=== PATIENT | female | born 1985 | race Caucasian/White ===

== ENCOUNTER 2017-08-09 03:58 | Day surgery (SDC) | payer OTHER ==
[2017-08-06 11:21] LABS: BASOPHIL % 0.3 % (0.0-0.2); EOSINOPHIL # 0.1 10^3/uL (0.0-0.2); EOSINOPHIL % 1.5 % (0.0-5.0); LYMPHOCYTES # 2.7 10^3/uL (1.0-4.8); LYMPHOCYTES % 28.7 % (24.0-44.0); MEAN CELL HGB CONCENTRATION 32.3 g/dL (33-37); MEAN CORP VOLUME 83.6 fL (78-100); MEAN PLATELET VOLUME 9.5 fL (7.8-11.0); MONOCYTES # 0.5 10^3/uL (0.3-0.8); MONOCYTES % 5.4 % (5.0-12.0); NEUTROPHILS % 63.9 % (41.0-85.0); RED CELL DISTRIBUTION WIDTH 12.9 % (11.5-14.5); WHITE BLOOD CELL 9.4 10^3/uL (4.5-11.0)
[2017-08-06 11:46] LABS: CALCIUM 9.6 mg/dL (8.4-10.5)
[2017-08-08 09:18] VITALS: BP 142/85
--- NOTE | 2017-08-08 09:29 | PCM.EKG ---
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
[~2017-08-09] VITALS: Ht 157.5 cm; Wt 91.6 kg
[~2017-08-09 03:58] MED LIST: BUSP30TA PO; INSU100C SQ; INSU100I31 SQ; LOSA25TA5 PO; METF500T5 PO; NORG1TAB6 PO; SERT100T PO
[2017-08-09] MEDS ORDERED: NS 1000ML 1,000 ML ONE (04:34)
[2017-08-09] MEDS ORDERED: LIDOCAINE 2% VIAL ONE (06:04)
[2017-08-09] MEDS ORDERED: DIPRIVAN IV ONE (06:04)
[2017-08-09] MEDS ORDERED: NS 1000ML 1,000 ML IV SCH (07:00)
[2017-08-09 07:13] VITALS: BP 145/74
[2017-08-09 08:43] VITALS: BP 105/69
[2017-08-09 08:48] VITALS: BP 111/69
[2017-08-09 08:53] VITALS: BP 127/82
[2017-08-09 08:55] VITALS: BP 118/82
[2017-08-09] MEDS ORDERED: PHENERGAN IV PRN (09:00)
--- NOTE | 2017-08-09 11:31 | OPH ---
DATE OF SURGERY: PREOPERATIVE DIAGNOSIS: History of dyspepsia. POSTOPERATIVE DIAGNOSIS: Gastritis. SURGEON: Taz Otto DO IT TECHNICAL SPECIALIST: OR staff. ANESTHESIA: Total intravenous anesthesia by Cuauhtemoc Mcgee CRNA. PROCEDURE PERFORMED: Esophagogastroduodenoscopy with biopsy. SPECIMENS: Gastric mucosa to path. ESTIMATED BLOOD LOSS: 3 mL. COUNTS: At the completion of the case, the counts were correct per OR staff. DESCRIPTION OF PROCEDURE: The patient is a 31-year-old female known from previous evaluation. Prior to procedure, informed consent was obtained. At time of procedure, she was taken to the operative suite and placed in supine position. After time-out was completed, she was placed in left lateral recumbent position. After adequate sedation, esophagogastroduodenoscope was advanced transorally with pneumoinsufflation distally in second portion of duodenum. Once the duodenum was adequately visualized, camera was slowly withdrawn to facilitate visualization of the duodenal bulb and the pylorus. Pylorus and distal stomach showed minimal gastritis and biopsies were obtained. The retroflexed maneuver was performed. The cardia and fundus were grossly normal. Camera was reduced, stomach was decompressed, scope was slowly withdrawn. Distal, mid and proximal esophagus were grossly normal. Vocal cords were visualized and within normal limits. Camera was removed. Procedure was discontinued. The patient tolerated this procedure well. There were no acute complications noted. Taz Otto DO DR: JHOAN/luciana JOB# [id number] CC: Jennie Verma NP
== END 2017-08-09 09:15 | disposition home or self-care (01) | DRG 392 ==
LOC: SDC 03:58
PROVIDERS: ATTEND Surgery
DX: K29.50 Unspecified chronic gastritis without bleeding (principal); K30 Functional dyspepsia; E11.9 Type 2 diabetes mellitus without complications; F41.9 Anxiety disorder, unspecified; E03.9 Hypothyroidism, unspecified; E66.9 Obesity, unspecified; I10 Essential (primary) hypertension; E78.5 Hyperlipidemia, unspecified; Z98.890 Other specified postprocedural states; Z79.899 Other long term (current) drug therapy; Z80.8 Family history of malignant neoplasm of other organs or systems; Z88.8 Allergy status to other drugs, medicaments and biological substances; Z68.37 Body mass index [BMI] 37.0-37.9, adult; Z88.2 Allergy status to sulfonamides; Z79.84 Long term (current) use of oral hypoglycemic drugs
CPT/HCPCS: 36415; 43239; 80053; 84703; 85025; 85610; 85730; 88305; 93005; J2001; J3490; J7030

== ENCOUNTER → 2017-10-31 | Outpatient (CLI) | payer OTHER ==
--- NOTE | 2017-11-04 10:09 | DIET.OP ---
OP DIAB DIETARY CONSULT Date Seen by RD: Oct 31, 2017 Time Started: 02:00 Time Ended Session: 03:00 Calculated TT spent w/ Patient: 60 Reason for Referral (From Orde: Planning for Gastric Sleeve Surgery Is patient needing clearance f: Yes Pertinent Medical Hx/Surgical: DM type 2, HTN, hypercholesteralemia Pertinent Medications Humalog, Tresiba, Losartan, atorvastatin Does PT take any Supplements/V: No Do you dip or chew tobacco?: No Have you smoked in the past 12: No Alcohol use?: No Problems w/ Mouth/Teeth/Throat: No Hx High Cholesterol: Yes Height (Calculated Centimeters: [phone] Weight (Kilograms): 93 Weight (Calculated Grams): 50614.660 Weight Measurement Method: Standing Scale Current Weight: 205 Usual Weight: 190 %UBW: 108 What Type of Diabetes? (Type: 2 Current Bld Sugar Management? Fastin-150 mg/dL Before Lunch: 150-250 mg/dL Medications: 22 units of Humalog with meals, 115 units of Tresiba once daily Primary Preferred Language: Guyanese Learning Preferences: Audio Marital Status: Primary Emotional Support Pers: Spouse Heartburn?: Yes Gas?: No Bloating?: Yes Stomach Pain?: No Nausea/Vomiting?: No Diarrhea?: No Constipation?: No Allergies?: Yes If yes, please list: Sulfa, Metformin Goals for this Session: To receive more information on a diabetic diet and bariatric diet in preparation for gastric sleeve Previous Received Diet Edu? Pt reported having some DM education about 6 years ago Current Eating Pattern(s): BLD: Breakfast (2 boiled eggs, 3 slices of terrell, Coffee), Dinner (Protein, Veggie, Pasta/Potato/Starch, unsweet Tea), Lunch ( Baked Potato w/butter and cheese, salad w/lettuce tomato carrots ham and ranch dressing, unsweet Tea), Snacks (Sweet and Salty Bar, [address] Sandoval 2x week, water) Dietary Limitations?(i.e.-disl: No Sleep Pattern(s): Sleeps 6-7 hours per night Do you Exercise?: Yes (walks 30 minutes every other day) PES STATEMENT: PES Statement Overweight related to food and nutrition related knowledge deficit as evidenced by BMI 37.5, 108% UBW, 186% IBW. Education Provided?: Yes Nutrition education given: Pt was given education on proper diabetic diet, tip for eating after bariatric surgery, vitamin and mineral supplementation after surgery and diet expectations after surgery. In the coming sessions, the goal is to dive further in depth into proper vitamin and mineral supplementation and diet for post surgery to ensure pt has the tools to be successful. Stage of change: Pt is currently in the preparation stage Goals in Patient Words: Goals to work on for next session: " I will decrease my consumption of Dr. Sandoval to once per week." "Better follow a proper diet for my DM because I was not sure what I could and could not eat." Next F/U Date & Time [facility]man on: 11/28/2017, [address] Nov 04, 2017 10:09
== END | disposition home or self-care (01) ==
LOC: DED 12:56
PROVIDERS: ATTEND Nurse Practitioner Family
DX: E66.01 Morbid (severe) obesity due to excess calories (principal); E11.9 Type 2 diabetes mellitus without complications; I10 Essential (primary) hypertension; E78.5 Hyperlipidemia, unspecified; K21.9 Gastro-esophageal reflux disease without esophagitis; E03.9 Hypothyroidism, unspecified
CPT/HCPCS: 97803

== ENCOUNTER → 2017-12-19 | Outpatient (CLI) | payer OTHER ==
[~2017-12-19] MED LIST changes: -LOSA25TA5 PO; +LOSA25TA6 PO; +METF500T17 PO; -METF500T5 PO
--- NOTE | 2017-12-23 10:39 | DIET.OP ---
Outpatient Nutritional Edu Time In: 15:15 Time Out: 15:45 Dietary/Nutritional Education Anthropometrics: Height (in.): 62 Weight (kg): 91 BMI: 36.6 Previous Diet Recall: Breakfast (2 boiled eggs, 3 slices of terrell, Coffee) Lunch (Baked Potato w/butter and cheese, salad w/lettuce tomato carrots ham and ranch dressing, unsweet Tea) Dinner (Protein, Veggie, Pasta/Potato/Starch, unsweet Tea) Snacks (Sweet and Salty Bar, [address] Sandoval 2x week, water) Sleep: Continues to get 6-7 hours per night Subjective Information: Patient has been doing well since our last visit in October. She has reported a weight loss of approximately 5 pounds over this time period. She did not bring her food journal from home, but reported that she has been filling it out since the last visit. She was provided a new journal and advised to bring it back with her so that it can be reviewed. She reported that she has been making several diet modifications including eliminating carbonated drinks from her diet. She is set to do her psych evaluation for surgery and once she finds out those results she will be able to figure out a surgery date. When a surgery date is picked, more specific nutrition education and preparation for bariatric surgery can be executed to give her the best chance for success. She is making good progress towards having a successful outcome. State of Change: The patient continues to be in the action stage of change Patient Goal: " Continue to really monitor food intake and fill out food diary so it can be assessed at the next visit." AWILDA WHEELER RD Dec 23, 2017 10:39
== END | disposition home or self-care (01) ==
LOC: DED 14:55
PROVIDERS: ATTEND Nurse Practitioner Family
DX: E66.01 Morbid (severe) obesity due to excess calories (principal); E11.9 Type 2 diabetes mellitus without complications
CPT/HCPCS: 97803

== ENCOUNTER → 2018-01-23 | Outpatient (CLI) | payer OTHER ==
[~2018-01-23] MED LIST changes: +ACET-685 PO; +ATOR40TA PO; +LOSA25TA12 PO; -LOSA25TA6 PO; +ONDA4SOL2 PO; +TRAM50TA PO
== END | disposition home or self-care (01) ==
LOC: DED 15:00
PROVIDERS: ATTEND Nurse Practitioner Family
DX: E11.9 Type 2 diabetes mellitus without complications (principal); E66.01 Morbid (severe) obesity due to excess calories; I10 Essential (primary) hypertension; E78.5 Hyperlipidemia, unspecified; E03.9 Hypothyroidism, unspecified; Z68.37 Body mass index [BMI] 37.0-37.9, adult
CPT/HCPCS: 97803

== ENCOUNTER → 2018-02-06 | Outpatient (CLI) | payer OTHER ==
[~2018-02-06] MED LIST changes: -ACET-685 PO; -ATOR40TA PO; -LOSA25TA12 PO; +LOSA25TA6 PO; -ONDA4SOL2 PO; -TRAM50TA PO
[2018-02-06 14:17] LABS: EOSINOPHIL # 0.2 10^3/uL (0.0-0.2); EOSINOPHIL % 1.7 % (0.0-5.0); HEMOGLOBIN 14.6 g/dL (12.0-15.0); LYMPHOCYTES # 1.7 10^3/uL (1.0-4.8); LYMPHOCYTES % 19.1 % (24.0-44.0); MEAN CELL HGB 26.8 pg (26-34); MEAN CELL HGB CONCENTRATION 32.2 g/dL (33-37); MEAN CORP VOLUME 83.3 fL (78-100); MEAN PLATELET VOLUME 10.1 fL (7.8-11.0); MONOCYTES # 0.7 10^3/uL (0.3-0.8); MONOCYTES % 7.5 % (5.0-12.0); NEUTROPHIL # 6.4 10^3/uL (1.8-7.7); NEUTROPHILS % 71.5 % (41.0-85.0); RED CELL DISTRIBUTION WIDTH 13.7 % (11.5-14.5); WHITE BLOOD CELL 8.9 10^3/uL (4.5-11.0)
[2018-02-06 14:33] LABS: CALCIUM 9.2 mg/dL (8.4-10.5); CARBON DIOXIDE 26.8 mmol/L (20.0-32)
== END | disposition home or self-care (01) ==
LOC: NPLAB 14:08
PROVIDERS: ATTEND Nurse Practitioner
DX: R11.2 Nausea with vomiting, unspecified (principal)
CPT/HCPCS: 36415; 80053; 85025

== ENCOUNTER → 2018-03-14 | Outpatient (CLI) | payer OTHER ==
[~2018-03-14] MED LIST changes: +ATOR40TA PO; +LOSA25TA12 PO; -LOSA25TA6 PO
[2018-03-14 09:56] LABS: BASOPHIL % 0.5 % (0.0-0.2); EOSINOPHIL # 0.2 10^3/uL (0.0-0.2); HEMOGLOBIN 13.7 g/dL (12.0-15.0); LYMPHOCYTES # 2.5 10^3/uL (1.0-4.8); LYMPHOCYTES % 38.1 % (24.0-44.0); MEAN CELL HGB 27.1 pg (26-34); MEAN CELL HGB CONCENTRATION 33.2 g/dL (33-37); MEAN CORP VOLUME 81.8 fL (78-100); MEAN PLATELET VOLUME 9.9 fL (7.8-11.0); MONOCYTES # 0.4 10^3/uL (0.3-0.8); MONOCYTES % 6.2 % (5.0-12.0); NEUTROPHIL # 3.4 10^3/uL (1.8-7.7); RED CELL DISTRIBUTION WIDTH 13.6 % (11.5-14.5); WHITE BLOOD CELL 6.6 10^3/uL (4.5-11.0)
[2018-03-14 10:26] LABS: ALANINE AMINOTRANSFERASE(ML) 49 U/L (12-78); ALKALINE PHOSPHATASE 124 U/L (50-136); ASPARTATE AMINO TRANSFERASE 27 U/L (0-35); CALCIUM 9.6 mg/dL (8.4-10.5); CARBON DIOXIDE 24.9 mmol/L (20.0-32); CHOLESTEROL 269 mg/dL (120-240); GLUCOSE 284 mg/dL (70-110); HDL CHOLESTEROL 32 mg/dL (32-96)
== END | disposition home or self-care (01) ==
LOC: LAB 09:30
PROVIDERS: ATTEND Nurse Practitioner
DX: E11.9 Type 2 diabetes mellitus without complications (principal); E66.01 Morbid (severe) obesity due to excess calories; K21.9 Gastro-esophageal reflux disease without esophagitis; I10 Essential (primary) hypertension; Z68.37 Body mass index [BMI] 37.0-37.9, adult
CPT/HCPCS: 36415; 80053; 80061; 82306; 83036; 84439; 84443; 85025

== ENCOUNTER 2018-03-19 02:51 | Observation (INO) | payer OTHER ==
[2018-03-17 11:32] VITALS: BP 127/87
[2018-03-17 11:50] LABS: BASOPHIL % 0.4 % (0.0-0.2); EOSINOPHIL # 0.1 10^3/uL (0.0-0.2); EOSINOPHIL % 1.7 % (0.0-5.0); HEMOGLOBIN 13.6 g/dL (12.0-15.0); LYMPHOCYTES # 2.5 10^3/uL (1.0-4.8); LYMPHOCYTES % 29.8 % (24.0-44.0); MEAN CELL HGB 27.3 pg (26-34); MEAN CELL HGB CONCENTRATION 33.4 g/dL (33-37); MEAN CORP VOLUME 81.7 fL (78-100); MEAN PLATELET VOLUME 9.9 fL (7.8-11.0); MONOCYTES # 0.5 10^3/uL (0.3-0.8); MONOCYTES % 5.8 % (5.0-12.0); NEUTROPHIL # 5.3 10^3/uL (1.8-7.7); NEUTROPHILS % 62.2 % (41.0-85.0); RED CELL DISTRIBUTION WIDTH 13.5 % (11.5-14.5); WHITE BLOOD CELL 8.5 10^3/uL (4.5-11.0)
[2018-03-17 12:36] LABS: CARBON DIOXIDE 23.7 mmol/L (20.0-32)
[2018-03-19] VITALS (12 sets, daily range): BP systolic 122–152; BP diastolic 72–96
[~2018-03-19] VITALS: Ht 154.9 cm; Wt 85.3 kg
[2018-03-19] MEDS ORDERED: MEFOXIN ONE ×2 (05:32→14:57)
[2018-03-19] MEDS ORDERED: LOVENOX SQ ONE ×3 (05:32→06:30)
[2018-03-19] MEDS ORDERED: NS 1000ML 1,000 ML ONE ×4 (05:32→09:13)
[2018-03-19] MEDS ORDERED: NS 100ML 100 ML IV ONE ×3 (05:33→14:57)
[2018-03-19] MEDS ORDERED: HUMULIN R SQ ONE ×4 (06:20→13:40)
[2018-03-19] MEDS: NS 1000ML 1,000 ML IV SCH ×4 (06:30→18:02)
[2018-03-19] MEDS ORDERED: DECADRON ONE (06:49)
[2018-03-19] MEDS ORDERED: ZOFRAN ONE (06:49)
[2018-03-19] MEDS ORDERED: NEOSTIGMINE ONE (06:49)
[2018-03-19] MEDS ORDERED: VERSED ONE (06:50)
[2018-03-19] MEDS ORDERED: DILAUDID ONE (06:50)
[2018-03-19] MEDS ORDERED: TORADOL ONE (06:50)
[2018-03-19] MEDS ORDERED: SUBLIMAZE ONE (06:50)
[2018-03-19] MEDS ORDERED: ZEMURON IV ONE (06:50)
[2018-03-19] MEDS ORDERED: DIPRIVAN IV ONE (06:50)
[2018-03-19] MEDS ORDERED: LIDOCAINE 2% VIAL ONE (06:51)
[2018-03-19] MEDS ORDERED: QUELICIN ONE (06:52)
[2018-03-19] MEDS ORDERED: TRANSDERM-SCOP TD ONE (08:56)
[2018-03-19] MEDS ORDERED: SENSORCAINE-MPF 0.25% VIAL ONE (09:37)
[2018-03-19] MEDS ORDERED: SODIUM CHLORIDE IR ONE (09:37)
[2018-03-19] MEDS ORDERED: SODIUM CHLORIDE IRR BAG 1,000 ML ONE ×2 (09:37→12:05)
[2018-03-19] MEDS ORDERED: WATER ONE (09:58)
[2018-03-19] MEDS ORDERED: HUMULIN R ONE ×2 (12:57→13:39)
[2018-03-19] MEDS ORDERED: TRANDATE IV ONE (12:57)
[2018-03-19] MEDS ORDERED: LOPRESSER ONE (13:25)
[2018-03-19] MEDS ORDERED: PEPCID IV ONE (13:27)
[2018-03-19] MEDS ORDERED: GENASYME PO ONE (13:30)
[2018-03-19] MEDS ORDERED: MORPHINE SULFATE IV PRN ×2 (13:30)
[2018-03-19] MEDS ORDERED: VENTOLIN IH PRN (13:30)
[2018-03-19] MEDS ORDERED: TYLENOL PO PRN (13:30)
[2018-03-19] MEDS ORDERED: ZOFRAN IV PRN ×2 (13:30)
[2018-03-19] MEDS ORDERED: PHENERGAN IV PRN (13:30)
[2018-03-19] MEDS ORDERED: TORADOL IV PRN (13:30)
[2018-03-19] MEDS ORDERED: BENADRYL IV PRN (13:30)
[2018-03-19] MEDS ORDERED: DILAUDID IV PRN ×2 (13:30)
[2018-03-19] MEDS ORDERED: PHENERGAN 12.5 MG in NS 25ML 25 ML IV PRN (13:30)
[2018-03-19] MEDS ORDERED: TRANDATE IV PRN (13:30)
[2018-03-19] MEDS ORDERED: LOVENOX SQ SCH (14:00)
[2018-03-19] MEDS ORDERED: DEXTROSE 50%-WATER SYRINGE IV PRN (14:00)
--- NOTE | 2018-03-19 14:09 | OPH ---
DATE OF SURGERY: 03/19/2018 PREOPERATIVE DIAGNOSES: 1. History of morbid obesity. 2. History of diabetes. 3. History of hypertension. POSTOPERATIVE DIAGNOSES: 1. History of morbid obesity. 2. History of diabetes. 3. History of hypertension. SURGEON: Taz Otto DO UNDERWRITING CONSULTANT: OR staff. ANESTHESIA: General by Boni Zambrano CRNA plus local used on the field. PROCEDURES PERFORMED: Laparoscopic-assisted sleeve gastrectomy. SPECIMENS: A lot of gastric body to path. ESTIMATED BLOOD LOSS: 29 mL. COUNTS: At the completion of the case, counts were correct per OR staff. DESCRIPTION OF PROCEDURE: The patient is a very pleasant 32-year-old female known from previous evaluation. Prior to procedure, informed consent was obtained. At the time of procedure, she was taken to the operative suite and placed in supine position. After timeout was completed, general anesthesia was obtained. Her abdomen was prepped and draped in normal fashion. She was repositioned into the low lithotomy position. Once appropriately positioned and prepped and draped, local was used to anesthetize the left midclavicular line, approximately 5 cm inferior to the costal margin. Incision was created and 5 mm trocar was introduced into the abdomen with Endo camera visualization. Once in the abdomen, pneumoperitoneum was induced to the level of 14 mmHg. Next, under camera visualization, a 5 mm trocar was placed further laterally in the left lower quadrant, one was placed in the epigastrium and removed. Carlene liver retractor was passed in through and the liver was retracted. A 15 mm trocar was placed in the midline in the left upper quadrant and a 5 mm trocar was placed laterally in the right upper quadrant. Attention was directed towards the body of the stomach and was mobilized from the lateral attachments to the omentum, starting at the distal aspect of the greater curve using the Harmonic scalpel to the greater curvature completely mobilized to the phrenoesophageal ligament. There was some posterior attachments, identified and mobilized using the Harmonic scalpel. It was mobilized distally to approximately 8 cm proximal to the pylorus. With appropriate mobilization inspection noted, bougie was passed by Department of Anesthesia and sequential staple loads were fired to divide the lateral of the stomach to create the tube gastrectomy. The initial staple load was screened using SeamGuard and the remainder blue until it was completely divided and removed. Specimen was then from the operative area to the right upper quadrant. The bougie was removed by Department of Anesthesia and an E wall tube is placed. Stomach was insufflated with air. The upper abdomen was filled with saline and inspected and noted to have no signs of air leak. Gastric sleeve was to be removed and it was placed in EndoCatch bag, removed through the large trocar and passed to backtable. Trocar was reinserted. Again, the staple line was reinspected under water and no signs of leak identified. Irrigation and suctioned and a small bleeding vessel was identified on the staple line in the mid aspect of the stomach. It was controlled with 2 laparoscopic clips. Evicel was brought on the field and mixed and placed directly down the staple line. The omentum reapproximating the area. Final inspection was made with good hemostasis noted, closure was pursued. Under camera visualization, all 5 trocar sites were localized using a combination of Marcaine and Exparel. The Carlene was removed with camera visualization. There was noted to be no bleeding from the liver. The remainder trocar was removed with camera visualization. There was noted to be no bleeding. Fascia on the large incision was closed with #1 PDS loop suture. The 5 skin incisions were closed with 4-0 Monocryl. The patient was cleaned. Steri-Strips and dressings were applied. Drapes removed. The patient is currently in recovery room. She started a Gastrografin swallow series, which shows patent esophagus and no signs of leak; however, it has not been completed at this point. Taz Otto DO DR: Shorty JOB# [id number] CC: Jennie Verma WAREHOUSE RECEIVING SUPERVISOR
[2018-03-19] MEDS: MEFOXIN 1 GM in NS 100ML 100 ML IV SCH ×2 (15:02→20:39)
--- NOTE | 2018-03-19 15:03 | DIREP ---
PROCEDURE:CHEST 1 VIEW COMPARISON:None. INDICATIONS:Eval For leak, POST GASTRIC SLEEVE FINDINGS: LUNGS/PLEURA:No significant pulmonary parenchymal abnormalities. No effusions. VASCULATURE:Normal. Unremarkable pulmonary vasculature. CARDIAC:Normal. No cardiac silhouette abnormality or cardiomegaly. MEDIASTINUM:Normal. No visible mass or adenopathy. BONES:Dextroscoliosis of the thoracic spine. OTHER:Oral contrast is identified in the lower esophagus and stomach. The patient has had a gastric sleeve procedure. No definite leakage is identified on these 3 images. CONCLUSION: 1. Normal heart and lungs with no definite leakage of contrast from the stomach in this patient with recent gastric sleeve procedure. Dictated by: Cj Dangelo M.D. on 03/19/2018 at 02:59 PM
[2018-03-19] MEDS: ACCU-CHEK MC SCH ×2 (18:00→21:00)
[2018-03-19] MEDS: NOVOLIN R SUBCUT SCH ×2 (18:00→21:36)
[2018-03-19] MEDS: GENASYME PO PRN (20:03)
[2018-03-19] MEDS: NORCO 5MG PO PRN (20:03)
[2018-03-20] MEDS: NS 1000ML 1,000 ML IV SCH ×2 (00:16→05:01)
[2018-03-20 00:21] VITALS: BP 117/76
[2018-03-20] MEDS: MEFOXIN 1 GM in NS 100ML 100 ML IV SCH ×2 (02:22→08:25)
[2018-03-20 04:54] VITALS: BP 115/71
[2018-03-20 05:18] LABS: BASOPHIL % 0.1 % (0.0-0.2); EOSINOPHIL % 0.4 % (0.0-5.0); HEMOGLOBIN 11.1 g/dL (12.0-15.0); LYMPHOCYTES # 2.5 10^3/uL (1.0-4.8); LYMPHOCYTES % 32.9 % (24.0-44.0); MEAN CELL HGB 27.7 pg (26-34); MEAN CELL HGB CONCENTRATION 32.2 g/dL (33-37); MEAN PLATELET VOLUME 10.1 fL (7.8-11.0); MONOCYTES # 0.6 10^3/uL (0.3-0.8); MONOCYTES % 8.5 % (5.0-12.0); NEUTROPHIL # 4.3 10^3/uL (1.8-7.7); RED CELL DISTRIBUTION WIDTH 13.6 % (11.5-14.5); WHITE BLOOD CELL 7.5 10^3/uL (4.5-11.0)
[2018-03-20 05:38] LABS: CALCIUM 7.6 mg/dL (8.4-10.5)
[2018-03-20] MEDS: ACCU-CHEK MC SCH ×2 (07:30→12:11)
[2018-03-20 08:15] VITALS: BP 120/76
[2018-03-20] MEDS: NOVOLIN R SUBCUT SCH ×2 (08:24→12:41)
[2018-03-20] MEDS: NORCO 5MG PO PRN ×2 (08:25→12:10)
[2018-03-20] MEDS: GENASYME PO PRN (08:26)
--- NOTE | 2018-03-20 08:32 | PRM.PN ---
Progress Note Objective Review IO, Exams,& Results Vital Signs Date Time Temp Pulse Resp B/P (MAP) Pulse Ox O2 Delivery O2 Flow Rate FiO2 03/20/18 04:54 98.5 85 16 115/71 (86) 98 Nasal Canula 3.00 98.5 03/19/18 16:18 21 Intake and Output 03/20/18 07:01 Intake Total 7950 ml Output Total 450 ml Balance 7500 ml Intake Oral 650 ml Electrolyte Solution 3000 ml IV Total 1300 ml Other 3000 ml Output Urine Total 450 ml # Voids 5 Laboratory Tests Test 03/20/18 04:45 White Blood Count 7.5 10^3/uL Red Blood Count 4.01 10^6/uL Hemoglobin 11.1 g/dL Hematocrit 34.5 % Mean Corpuscular Volume 86.0 fL Mean Corpuscular Hemoglobin 27.7 pg Mean Corpuscular Hemoglobin Concent 32.2 g/dL Red Cell Distribution Width 13.6 % Platelet Count 263 10^3/uL Mean Platelet Volume 10.1 fL Neutrophils (%) (Auto) 58.0 % Lymphocytes (%) (Auto) 32.9 % Monocytes (%) (Auto) 8.5 % Neutrophils # (Auto) 4.3 10^3/uL Lymphocytes # (Auto) 2.5 10^3/uL Monocytes # (Auto) 0.6 10^3/uL Absolute Immature Granulocyte (auto 0.01 10^3 u/L Eosinophils % 0.4 % Basophils % 0.1 % Basophils # 0.0 10^3/uL Eosinophil Count 0.0 10^3/uL Sodium Level 143 mmol/L Potassium Level 3.3 mmol/L Chloride Level 110.0 mmol/L Carbon Dioxide Level 24.0 mmol/L Anion Gap 12.3 Blood Urea Nitrogen 8 mg/dL Creatinine 0.59 mg/dL Estimated GFR () 144.8 BUN/Creatinine Ratio 13.0 Glucose Level 158 mg/dL Calcium Level 7.6 mg/dL Total Bilirubin 0.4 mg/dL Aspartate Amino Transf (AST/SGOT) 128 U/L Alanine Aminotransferase (ALT/SGPT) 131 U/L Alkaline Phosphatase 94 U/L Total Protein 6.0 g/dL Albumin 2.8 g/dL Globulin 3.2 Percent Immature Gran (Cell Imm) 0.10 % Current Medications Medications (Trade) Dose Ordered Sig/Usman PRN Reason Start Time Stop Time Status Last Admin Acetaminophen (Tylenol) 650 mg Q6 PRN FEVER/MILD PAIN 03/19/18 13:30 04/18/18 13:29 Acetaminophen/ Hydrocodone Bitart ([place] 5mg) 1 ea Q4H PRN PAIN MODERATE 03/19/18 13:30 04/18/18 13:29 03/19/18 20:03 Cefoxitin Sodium 1 gm/Sodium Chloride 100 ml @ 100 mls/hr Q6 03/19/18 13:30 04/18/18 13:29 03/20/18 02:22 Dextrose (Dextrose 50%-Water Syringe) 25 ml PRN PRN HYPOGLYCEMIA 03/19/18 14:00 04/18/18 13:59 Enoxaparin Sodium (Lovenox) 40 mg Q24HRS 03/19/18 14:00 04/18/18 13:59 Hydromorphone HCl (Dilaudid) 1 mg Q3HR PRN PAIN MODERATE 03/19/18 13:30 04/18/18 13:29 Insulin Human Regular (Novolin R) SLIDING SCALE ACHS 03/19/18 17:30 04/18/18 17:29 03/19/18 21:36 Ketorolac Tromethamine (Toradol) 30 mg Q8 PRN PAIN 03/19/18 13:30 03/24/18 13:29 03/19/18 18:49 Miscellaneous Medication (Accu-Chek) 1 each ACHS 03/19/18 17:30 04/18/18 17:29 03/19/18 21:00 Morphine Sulfate (Morphine Sulfate) 1 mg Q4H PRN PAIN MODERATE 03/19/18 13:30 04/18/18 13:29 Morphine Sulfate (Morphine Sulfate) 3 mg Q3H PRN PAIN 03/19/18 13:30 04/18/18 13:29 Ondansetron HCl (Zofran) 4 mg Q6HR PRN NAUSEA / VOMITING 03/19/18 13:30 04/18/18 13:29 Pantoprazole Sodium (Protonix Iv) 40 mg DAILY 03/20/18 09:00 04/19/18 08:59 Promethazine HCl 12.5 mg/Sodium Chloride 25.5 ml @ 75.743 mls/ hr Q8HR PRN NAUSEA / VOMITING 03/19/18 13:30 04/18/18 13:29 Simethicone (Genasyme) 80 mg Q4 PRN GAS/BLOATING 03/19/18 13:30 04/18/18 13:29 03/19/18 20:03 Sodium Chloride 1,000 ml @ 125 mls/hr Q8H 03/19/18 13:01 04/18/18 13:00 03/20/18 00:16 Assessment & Plan: Plan Doing very well post. Hopefully home today. H&P # [id number] JAX DEXTER MD Mar 20, 2018 08:32
--- NOTE | 2018-03-20 08:46 | HPH ---
ADMIT DATE: CHIEF COMPLAINT: Going to be severe generalized failure to thrive secondary to unexplained weight gain and class 3 obesity. HISTORY OF PRESENT ILLNESS: This is a very pleasant 32-year-old female with a past medical history significant for hypertension and diabetes as well as morbid obesity. This is something she has struggled with throughout her adult life and has had difficulty with weight management without success from dieting or exercise. She saw Dr. Taz Otto for evaluation of a laparoscopic-assisted sleeve gastrectomy. This in fact did take place on 03/19/2018 and the patient did very well during the case without complications. She did have some episodes of hyperglycemia postoperatively, but these were controlled well with sliding scale insulin. Her vital signs remained stable throughout her procedure as well as postoperatively. After her procedures, she had a Gastrografin swallow series, which showed patent esophagus and no signs of leak to that point. During my interview and examination of the patient today, she is doing well, although is somewhat groggy from just being sleepy. She states her abdominal pain is well controlled. She is only taking oral pain medication at this point, which includes hydrocodone. She has not needed IV pain medication. PAST MEDICAL HISTORY: 1. Hypertension. 2. Diabetes mellitus type 2. 3. Morbid obesity. 4. The patient is G2, P2. MEDICATIONS: Please see admit medication reconciliation form. PAST SURGICAL HISTORY: Significant for bariatric surgery as performed above. SOCIAL HISTORY: Tobacco: None. Alcohol: None. 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 FAMILY HISTORY: There is a family history of uterine cancer, otherwise unremarkable. ALLERGIES: SULFA. OBJECTIVE: VITAL SIGNS: Temperature is 98.5, T-max is 98.5, pulse is 85, respirations 16, blood pressure 115/71, pulse oximetry is 98% on 3 liters, which was only needed secondary to some mild hypopnea from pain medication. GENERAL: This is a well-appearing female, in no acute distress. She does have obesity, but is doing quite well, currently postop. HEENT: Atraumatic, normocephalic. Sclerae clear and anicteric. Oral mucosa is moist. NECK: Soft, supple normal range of motion. No tenderness, bruits, goiter, mass or adenopathy. There is no JVD. LUNGS: Clear to auscultation bilaterally. HEART: Regular rate and rhythm without murmurs, S3 or S4. ABDOMEN: Obese, but soft. Largely nontender unless firm pressure is applied. She has excellent bowel sounds in all 4 quadrants. Her incisions are dressed, clean and dry. EXTREMITIES: Warm and well perfused without evidence of edema, cyanosis or clubbing. NEUROLOGIC: Cranial nerves 2-12 are grossly intact and symmetric. SKIN: Intact. LABORATORY DATA: WBC 7.5, hemoglobin 11.1, hematocrit 34.5, platelets are 263. Sodium 143, potassium 3.3, chloride 110, BUN 8, creatinine 0.59, glucose 158, calcium 7.6, AST 128, ALT 131. Albumin is 2.8. PT 10, PTT 23.6. ASSESSMENT: 1. Status post laparoscopic-assisted sleeve gastrectomy, postop day #1. 2. Morbid obesity. 3. Diabetes mellitus type 2 -- inconsistently controlled. 4. Hypertension. 5. Postoperative abdominal pain. PLAN: This patient is doing very well postop. Her abdomen is soft and largely nontender. She has very good bowel sounds. She has been up and walking. She is currently n.p.o., but will be having brought soon. Blood sugars have been over 200, which is likely a result of the trauma from surgery. She will be going home today, so I would recommend that we send her home on a larger dose of more consistent long-acting insulin such as Levemir. She has not tried glipizide and I think that might be a good option for her as well. She does not tolerate metformin. Victoza may also be a good option for her, especially given her weight. I would also like her to follow her blood pressures and bring these in to me in 2 weeks as well as bringing in her blood sugar, so we can make any adjustments as necessary. Otherwise, I think she is going to do very well. I have given her my cell phone number and asked her to call me if she has any problems or concerns and I will be happy to see her at any point. Thank you very much for allowing me to participate in the care of this very pleasant woman. Neto Jimenez MD DR: MARIMAR/luciana JOB# [id number] CC: Taz Otto DO
[2018-03-20] MEDS ORDERED: PROTONIX IV IV SCH (09:00)
[2018-03-20 12:40] VITALS: BP 122/77
[2018-03-20] MEDS ORDERED: TRAM50TA PO (14:55)
[2018-03-20] MEDS ORDERED: ONDA4SOL2 PO (14:56)
[2018-03-20] MEDS ORDERED: ACET-685 PO (14:56)
[2018-03-20 15:15] VITALS: BP 112/62
--- NOTE | 2018-03-20 15:15 | NUR ---
D/C PT D/C AND OFF OF UNIT VIA AMBULATING. NO S/S OF DISTRESS NOTED. RELINQUISHED CARE OF PT
== END 2018-03-20 17:47 | disposition home or self-care (01) ==
LOC: SDC 02:51 → MS 05:24 → UNDOADMOB 05:24 → EEVIPCON 05:24
PROVIDERS: ADMIT Internal Medicine; ATTEND Internal Medicine
DX: E66.01 Morbid (severe) obesity due to excess calories (principal); E11.9 Type 2 diabetes mellitus without complications; I10 Essential (primary) hypertension; R62.7 Adult failure to thrive; G89.18 Other acute postprocedural pain; R63.5 Abnormal weight gain
CPT/HCPCS: 36415 ×2; 43775; 71045; 80053 ×2; 82948 ×10; 84703; 85025 ×2; 85610; 85730; 88305; 96365; 96366 ×2; 96372 ×2; 96375 ×2; A4217 ×3; C9113; G0378 ×36; J0330; J1100; J1170; J1650; J1815 ×3; J1885 ×2; J2001; J2250; J2405; J2710; J3010; J3490 ×6; J7030 ×5; J7050 ×5; J0694; Q9963

== ENCOUNTER → 2018-04-02 | Outpatient (CLI) | payer OTHER ==
[~2018-04-02] MED LIST changes: +ACET-685 PO; +ONDA4SOL2 PO; +TRAM50TA PO
--- NOTE | 2018-04-06 18:56 | DIET.OP ---
OP DIETARY NUTRITION ASMT Date Seen by RD: Apr 02, 2018 Time Started: 15:00 Time Ended Session: 15:30 Calculated TT spent w/ Patient: 30 Reason for Referral (From [facility]: Post-Gastric Sleeve Past Medical History: Diabetes, HTN Pertinent Medical Hx/Surgical: Gastric Sleeve Does PT take any Supplements/V: Yes (Multivitamin) Height (Calculated Centimeters: 157.219250 Weight (Calculated Grams): 23739.660 Current Weight: 182 Usual Weight: 205 %UBW: 89 Marital Status: Allergies?: No Goals for this Session: Patient is here for 2 week post surgery visit. Will cover diet progression and vitamin/supplement recommendations with the patient. PES STATEMENT: PES Statement ____ related to as evidenced by . Education Provided?: Yes Nutrition education given: Vitamin/supplement recommendations, Diet Progression post gastric sleeve Subject Data: The patient reports that she has been doing great since her surgery on 03-19-18. She does report that she had a blood glucose level in the 340's, but that this is the first number she has seen this high since her surgery. She says that her blood glucose levels have stayed below 200. She is currently on a liquid diet, consuming Premier protein shakes (160 calories, 30g of protein). She is ready to progress to soft/bland foods. She is currently taking a [place] MV. Next F/U Date & Time [facility] on: Apr [address] Apr 06, 2018 18:55
== END | disposition home or self-care (01) ==
LOC: DED 15:00
PROVIDERS: ATTEND Surgery
DX: E11.9 Type 2 diabetes mellitus without complications (principal); I10 Essential (primary) hypertension; E66.01 Morbid (severe) obesity due to excess calories
CPT/HCPCS: 97803

== ENCOUNTER → 2018-04-30 | Outpatient (CLI) | payer OTHER ==
--- NOTE | 2018-05-06 07:56 | DIET.OP ---
OP DIETARY NUTRITION ASMT Date Seen by RD: Apr 30, 2018 Time Started: 15:00 Time Ended Session: 15:30 Calculated TT spent w/ Patient: 30 Reason for Referral (From Orde: Post Gastric Sleeve Is patient needing clearance f: Yes Past Medical History: Diabetes Pertinent Medical Hx/Surgical: Gastric Sleeve Does PT take any Supplements/V: No Height (Calculated Centimeters: 157.654785 Weight (Calculated Grams): 67658.660 Current Weight: 167 Usual Weight: 184 %UBW: 90 Goals for this Session: Continue to monitor patients progress post-Gastric Sleeve. Answer any questions she may have about her diet. Previous Received Diet Edu? At the last visit: Vitamin/supplement recommendations, Diet Progression post gastric sleeve PES STATEMENT: PES Statement ____ related to as evidenced by . Education Provided?: No Nutrition education given: N/A Subjective data: The patient states that she is doing well. She has progressed her diet to normal consistency food and has tolerated all foods that she has tried. She is still consuming Premier Protein shakes daily, along with stating that she tries to eat "low carb". She still walks for 30 minutes most days of the week. 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 Patient reports that she weighed 167 pounds this a.m. She has lost a total of 21 pounds since surgery day. She has not had any abnormal sugars since the last consult. All sugars have been below 200 mg/dL. Will see this patient at least one more time to continue to track her progress. Next F/U Date & Time [facility] on: June 04 at 14:[address] May 06, 2018 07:56
== END | disposition home or self-care (01) ==
LOC: DED 13:15
PROVIDERS: ATTEND Nurse Practitioner Family
DX: E11.9 Type 2 diabetes mellitus without complications (principal); E66.01 Morbid (severe) obesity due to excess calories
CPT/HCPCS: 97803

== ENCOUNTER → 2018-05-21 | Outpatient (CLI) | payer OTHER ==
[2018-05-21 11:44] LABS: HEMOGLOBIN 12.2 g/dL (12.0-15.0); MEAN CELL HGB CONCENTRATION 33.2 g/dL (33-37); MEAN CORP VOLUME 84.2 fL (78-100); MEAN PLATELET VOLUME 9.9 fL (7.8-11.0); RED CELL DISTRIBUTION WIDTH 13.2 % (11.5-14.5); WHITE BLOOD CELL 9.1 10^3/uL (4.5-11.0)
[2018-05-21 13:16] LABS: CALCIUM 8.8 mg/dL (8.4-10.5); CARBON DIOXIDE 26.2 mmol/L (20.0-32)
--- NOTE | 2018-05-21 14:10 | DIREP ---
PROCEDURE:XR SPINE CERVICAL COMP W/ OBLIQUES COMPARISON:None. INDICATIONS:M54.2 CERVICALGIA TECHNIQUE:AP, lateral, bilateral oblique, and dens views of the cervical spine are provided. FINDINGS: ALIGNMENT:Normal. VERTEBRAE:Normal. DISK SPACES:Normal. CERVICAL RIBS:None. OTHER:Normal. CONCLUSION:Normal examination. Dictated by: Trey Pablo M.D. on 05/21/2018 at 02:08 PM
[2018-05-22 13:20] LABS: SJOGREN'S ANTI-SS-B 2.2 AI (0.0-0.9)
== END | disposition home or self-care (01) ==
LOC: RAD 11:25
PROVIDERS: ATTEND Nurse Practitioner Family
DX: M54.2 Cervicalgia (principal); I10 Essential (primary) hypertension; E11.9 Type 2 diabetes mellitus without complications; E55.9 Vitamin D deficiency, unspecified; R53.83 Other fatigue
CPT/HCPCS: 36415; 72050; 80053; 82306; 82607; 82728; 82746; 83036; 83540; 83550; 83735; 84439; 84443; 85027; 86038

== ENCOUNTER → 2018-07-01 | Outpatient (CLI) | payer OTHER ==
[2018-07-01 14:49] LABS: BASOPHIL # 0.1 10^3/uL (0.0-0.1); BASOPHIL % 0.6 % (0.0-0.2); EOSINOPHIL # 0.2 10^3/uL (0.0-0.2); EOSINOPHIL % 1.7 % (0.0-5.0); HEMOGLOBIN 12.9 g/dL (12.0-15.0); LYMPHOCYTES # 3.2 10^3/uL (1.0-4.8); LYMPHOCYTES % 36.6 % (24.0-44.0); MEAN CELL HGB 28.2 pg (26-34); MEAN CELL HGB CONCENTRATION 33.4 g/dL (33-37); MEAN CORP VOLUME 84.3 fL (78-100); MEAN PLATELET VOLUME 9.4 fL (7.8-11.0); MONOCYTES # 0.5 10^3/uL (0.3-0.8); MONOCYTES % 5.7 % (5.0-12.0); NEUTROPHIL # 4.8 10^3/uL (1.8-7.7); NEUTROPHILS % 55.3 % (41.0-85.0); WHITE BLOOD CELL 8.6 10^3/uL (4.5-11.0)
[2018-07-01 15:17] LABS: ALANINE AMINOTRANSFERASE(ML) 28 U/L (12-78); ALKALINE PHOSPHATASE 120 U/L (50-136); ASPARTATE AMINO TRANSFERASE 17 U/L (0-35); CALCIUM 9.8 mg/dL (8.4-10.5); CARBON DIOXIDE 29.2 mmol/L (20.0-32); GLUCOSE 171 mg/dL (70-110)
== END | disposition home or self-care (01) ==
LOC: LAB 14:39
PROVIDERS: ATTEND Nurse Practitioner Family
DX: R07.9 Chest pain, unspecified (principal); E11.9 Type 2 diabetes mellitus without complications; I10 Essential (primary) hypertension
CPT/HCPCS: 36415; 80053; 84439; 84443; 84484; 85025

== ENCOUNTER → 2018-07-11 | Outpatient (CLI) | payer OTHER ==
[2018-07-11 10:25] LABS: HEMOGLOBIN 12.9 g/dL (12.0-15.0); MEAN CELL HGB 28.5 pg (26-34); MEAN CELL HGB CONCENTRATION 33.9 g/dL (33-37); MEAN CORP VOLUME 84.3 fL (78-100); MEAN PLATELET VOLUME 9.6 fL (7.8-11.0); RED CELL DISTRIBUTION WIDTH 13.1 % (11.5-14.5); WHITE BLOOD CELL 8.1 10^3/uL (4.5-11.0)
[2018-07-14 18:11] LABS: ALPHA-2-GLOBULIN 0.9 g/dL (0.4-1.0); BETA GLOBULIN 1.1 g/dL (0.7-1.3); GAMMA GLOBULIN 1.4 g/dL (0.4-1.8); GLOBULIN, TOTAL 3.6 g/dL (2.2-3.9); M-SPIKE Not Observed g/dL (Not Observed); PROTEIN, TOTAL 7.1 g/dL (6.0-8.5)
== END | disposition home or self-care (01) ==
LOC: LAB 10:07
PROVIDERS: ATTEND Nurse Practitioner Family
DX: D47.3 Essential (hemorrhagic) thrombocythemia (principal); R79.9 Abnormal finding of blood chemistry, unspecified
CPT/HCPCS: 36415; 84165; 85027

== ENCOUNTER → 2018-10-31 | Outpatient (CLI) | payer OTHER ==
[2018-10-31 08:41] LABS: HEMOGLOBIN 10.3 g/dL (12.0-15.0); MEAN CELL HGB 25.8 pg (26-34); MEAN CELL HGB CONCENTRATION 32.1 g/dL (33-37); MEAN CORP VOLUME 80.3 fL (78-100); MEAN PLATELET VOLUME 9.3 fL (7.8-11.0); RED CELL DISTRIBUTION WIDTH 12.6 % (11.5-14.5); WHITE BLOOD CELL 5.6 10^3/uL (4.5-11.0)
[2018-10-31 09:07] LABS: CARBON DIOXIDE 24.6 mmol/L (20.0-32)
== END | disposition home or self-care (01) ==
LOC: LAB 08:17
PROVIDERS: ATTEND Nurse Practitioner Family
DX: E11.21 Type 2 diabetes mellitus with diabetic nephropathy (principal); E03.9 Hypothyroidism, unspecified
CPT/HCPCS: 36415; 80053; 80061; 82043; 83036; 84439; 84443; 85027

== ENCOUNTER → 2018-11-06 | Outpatient (CLI) | payer OTHER ==
[2018-11-07 08:46] LABS: FOLLICLE STIMULATING HORMONE 3.9 mIU/mL (.)
== END | disposition home or self-care (01) ==
LOC: LAB 09:43
PROVIDERS: ATTEND Nurse Practitioner Family
DX: N92.6 Irregular menstruation, unspecified (principal); E11.9 Type 2 diabetes mellitus without complications; E03.9 Hypothyroidism, unspecified; I10 Essential (primary) hypertension
CPT/HCPCS: 36415; 82672; 83001; 83002; 84146; 84403

== ENCOUNTER → 2019-09-16 | Outpatient (CLI) | payer OTHER ==
--- NOTE | 2019-09-16 13:13 | DIREP ---
PROCEDURE:MRI SPINE CERVICAL W/O COMPARISON:None. INDICATIONS:M50.13 CERVICAL DISC DISORDER WITH RADICULOPATHY, CERVICOTHORACIC REGION TECHNIQUE:A variety of imaging planes and parameters were utilized for visualization of suspected pathology without contrast. FINDINGS: CRANIOCERVICAL AREA:Normal foramen magnum with no Chiari malformation. ALIGNMENT:Normal. VERTEBRA:No fracture or osseous lesions. SPINAL CORD:Normal size, contour, and signal intensity. PARASPINAL AREA:Normal with no visible mass. OTHER:No additional findings. CERVICAL DISC LEVELS: C2-C3:No significant disc/facet abnormality, spinal stenosis, or foraminal stenosis. C3-C4:No significant disc/facet abnormality, spinal stenosis, or foraminal stenosis. C4-C5:No significant disc/facet abnormality, spinal stenosis, or foraminal stenosis. C5-C6:A mild disc bulge is seen without canal stenosis or neural foraminal narrowing. C6-C7:No significant disc/facet abnormality, spinal stenosis, or foraminal stenosis. C7-T1:No significant disc/facet abnormality, spinal stenosis, or foraminal stenosis. CONCLUSION:There are findings of a mild posterior disc bulge at C5-6 without canal stenosis or neural foraminal narrowing. Dictated by: Yfn Moser M.D. on 09/16/2019 at 01:09 PM
== END | disposition home or self-care (01) ==
LOC: RAD 12:01
PROVIDERS: ATTEND Nurse Practitioner Family
DX: M50.13 Cervical disc disorder with radiculopathy, cervicothoracic region (principal)
CPT/HCPCS: 72141

== ENCOUNTER → 2019-09-23 | Outpatient (CLI) | payer OTHER ==
[2019-09-23 09:47] LABS: RED CELL DISTRIBUTION WIDTH 14.1 % (11.5-14.5)
[2019-09-23 10:21] LABS: CALCIUM 8.9 mg/dL (8.4-10.5); CARBON DIOXIDE 24.9 mmol/L (20.0-32)
== END | disposition home or self-care (01) ==
LOC: LAB 09:31
PROVIDERS: ATTEND Nurse Practitioner Family
DX: E11.9 Type 2 diabetes mellitus without complications (principal); D51.9 Vitamin B12 deficiency anemia, unspecified; I10 Essential (primary) hypertension
CPT/HCPCS: 36415; 80053; 80061; 82043; 82607; 83036; 83735; 84439; 84443; 85027

== ENCOUNTER → 2019-09-23 | Outpatient (CLI) | payer OTHER ==
[2019-09-24 17:22] LABS: BETA GLOBULIN 1.2 g/dL (0.7-1.3); GAMMA GLOBULIN 1.4 g/dL (0.4-1.8); GLOBULIN, TOTAL 3.7 g/dL (2.2-3.9); M-SPIKE Not Observed g/dL (Not Observed); PROTEIN, TOTAL 7.4 g/dL (6.0-8.5)
== END | disposition home or self-care (01) ==
LOC: LAB 13:34
PROVIDERS: ATTEND Nurse Practitioner Family
DX: R77.9 Abnormality of plasma protein, unspecified (principal)
CPT/HCPCS: 36415; 84165

== ENCOUNTER → 2019-09-30 | Outpatient (CLI) | payer OTHER | END | disposition home or self-care (01) | LOC: LAB 14:25 | PROVIDERS: ATTEND Obstetrics & Gynecology | DX: N92.0 Excessive and frequent menstruation with regular cycle (principal) | CPT/HCPCS: 87491; 87591 ==

== ENCOUNTER → 2019-10-22 | Outpatient (CLI) | payer OTHER | END | disposition home or self-care (01) | LOC: NPLAB 08:38 | PROVIDERS: ATTEND Obstetrics & Gynecology | DX: N91.1 Secondary amenorrhea (principal) | CPT/HCPCS: 36415; 84702 ==

== ENCOUNTER → 2019-11-19 | Outpatient (CLI) | payer OTHER | END | disposition home or self-care (01) | LOC: NPLAB 16:58 | PROVIDERS: ATTEND Obstetrics & Gynecology | DX: O09.91 Supervision of high risk pregnancy, unspecified, first trimester (principal); Z3A.00 Weeks of gestation of pregnancy not specified | CPT/HCPCS: 36415; 88155; 88175 ==

== ENCOUNTER → 2019-11-19 | Outpatient (CLI) | payer OTHER ==
[2019-11-19 17:22] LABS: MEAN CORP HGB 23.5 pg (26-34); RED CELL DISTRIBUTION WIDTH 17.2 % (11.5-14.5)
== END | disposition home or self-care (01) ==
LOC: NPLAB 16:55
PROVIDERS: ATTEND Obstetrics & Gynecology
DX: O09.91 Supervision of high risk pregnancy, unspecified, first trimester (principal); O24.111 Pre-existing type 2 diabetes mellitus, in pregnancy, first trimester; Z3A.00 Weeks of gestation of pregnancy not specified
CPT/HCPCS: 36415; 82570; 83036; 84156; 85027; 86318; 86592; 86762; 86900; 87086; 87340

== ENCOUNTER → 2020-01-14 | Outpatient (CLI) | payer OTHER | END | disposition home or self-care (01) | LOC: NPLAB 17:32 | PROVIDERS: ATTEND Obstetrics & Gynecology | DX: O09.92 Supervision of high risk pregnancy, unspecified, second trimester (principal); Z3A.00 Weeks of gestation of pregnancy not specified | CPT/HCPCS: 36415; 82105 ==

== ENCOUNTER → 2020-02-12 | Outpatient (CLI) | payer OTHER | END | disposition home or self-care (01) | LOC: NPLAB 15:48 | PROVIDERS: ATTEND Obstetrics & Gynecology | DX: O24.112 Pre-existing type 2 diabetes mellitus, in pregnancy, second trimester (principal); O10.012 Pre-existing essential hypertension complicating pregnancy, second trimester; Z3A.00 Weeks of gestation of pregnancy not specified | CPT/HCPCS: 36415; 82565; 82570; 83036; 84156 ==

== ENCOUNTER 2020-02-27 10:19 | Observation (INO) | payer OTHER ==
[2020-02-27] VITALS (7 sets, daily range): BP systolic 120–138; BP diastolic 62–75
[~2020-02-27] VITALS: Ht 154.9 cm; Wt 84.8 kg
--- NOTE | 2020-02-27 10:50 | NUR ---
FHT FHT NOTED AT 160, STRONG AND REGULAR. DR. NAPIER NOTIFIED.
[2020-02-27] MEDS ORDERED: NS 1000ML 1,000 ML ONE ×2 (10:54→23:28)
[2020-02-27] MEDS ORDERED: ZOFRAN IV STA (10:54)
[2020-02-27] MEDS ORDERED: ZOFRAN ONE (10:54)
[2020-02-27] MEDS ORDERED: SUBLIMAZE IV STA ×2 (10:54→13:47)
[2020-02-27] MEDS ORDERED: ROCEPHIN ONE (10:54)
[2020-02-27] MEDS ORDERED: NS 100ML 100 ML IV ONE (10:54)
[2020-02-27] MEDS ORDERED: NS 1000ML 1,000 ML IV STA ×2 (10:54→13:47)
[2020-02-27] MEDS ORDERED: ROCEPHIN IV STA (10:54)
[2020-02-27] MEDS ORDERED: SUBLIMAZE ONE (10:55)
--- NOTE | 2020-02-27 10:57 | ER.PDOC ---
General Chief Complaint: Headache Stated Complaint: 23 WEEKS PREG WITH A HEADACHE Time seen by MD: 10:48 Source: patient Exam Limitations: no limitations History of Present Illness Initial Comments Patient c/o worst headache of her life, onset 3 days ago. No report of fever/visual change/vomiting. Relieved on second day with Tylenol. Today it came back worse than before. Timing/Duration: constant, increasing Severity/Quality: worse ever, constant Prior Headaches/Recent Trauma: no recent headache/trauma Associated Symptoms: denies symptoms Modifying Factors: improves with exposure to light (worsens symptoms) Prior symptoms/Treatment: Treated by Doctor (patient is [address] care of [address] Barrios) Allergies: Coded Allergies: Sulfa (Sulfonamide Antibiotics) (Verified Allergy, Unknown, Rash, 03/17/18) Home Meds Reported Medications Acetaminophen With Codeine (TYLENOL WITH CODEINE #3 TABLET) 1 Each Tablet, 1 TAB PO Q6, #30 TAB 03/20/18 Ondansetron Hcl (ZOFRAN) 4 Mg/5 Ml Solution, 4 MG PO Q6 for N/V, FL.OZ 03/20/18 Tramadol Hcl (TRAMADOL HCL) 50 Mg Tablet, 1 TAB PO Q6 for PAIN, #90 TAB 03/20/18 Atorvastatin 40MG (LIPITOR 40MG) 40 Mg Tablet, 1 TAB PO HS, #90 TAB 1 Refill 03/17/18 Buspirone Hcl (BUSPIRONE HCL) 30 Mg Tablet, 1 TAB PO DAILY24, #60 TAB 08/08/17 Sertraline Hcl (ZOLOFT) 100 Mg Tablet, 1 TAB PO HS, #30 TAB 5 Refills 08/08/17 Losartan Potassium (LOSARTAN POTASSIUM) 25 Mg Tablet, 1 TAB PO HS, #90 TAB 1 Refill 08/08/17 Insulin Degludec (Tresiba Flextouch U-100) 100 Unit/Ml (3 Ml) Insuln.pen, 118 UNIT SQ HS 08/08/17 Insulin Lispro (HUMALOG) 100 Unit/1 Ml Cartridge, 22 UNIT SQ TIDM, CARTRIDGE 08/08/17 Past Medical History Medical History: other (preeclampsia) Surgical History: Family History Significant Family History: no pertinent family hx Social History Smoking: non-smoker Alcohol Use: none Drug Use: none Review of Systems Constitutional: denies no symptoms reported, denies see HPI, denies chills, denies diaphoresis, denies fever, denies malaise, denies weakness, denies other Eyes: photophobia Ears, Nose, Mouth, Throat: denies no symptoms reported, denies see HPI, denies ear pain, denies ear discharge, denies nose pain, denies nose discharge, denies epistaxis, denies mouth pain, denies mouth swelling, denies loose teeth, denies throat pain, denies throat swelling Respiratory: denies no symptoms reported, denies see HPI, denies cough, denies orthopnea, denies shortness of breath, denies stridor, denies wheezing, denies other Cardiovascular: denies no symptoms reported, denies see HPI, denies chest pain, denies edema, denies palpitations, denies syncope, denies other Gastrointestinal: denies no symptoms reported, denies see HPI, denies abdominal pain, denies constipation, denies diarrhea, denies nausea, denies vomiting, denies other Genitourinary: denies no symptoms reported, denies see HPI, denies discharge, denies dysuria, denies frequency, denies hematuria, denies pain, denies other Musculoskeletal: denies no symptoms reported, denies see HPI, denies back pain, denies gout, denies joint pain, denies joint swelling, denies muscle pain, denies muscle stiffness, denies neck pain, denies other Skin: denies no symptoms reported, denies see HPI, denies change in color, denies change in hair/nails, denies dryness, denies lesions, denies lumps, denies rash, denies other Psychiatric/Neurological: headache All Other Systems: Reviewed and Negative Physical Exam General Appearance: No Apparent Distress, WD/WN Head/Eyes: no facial swelling, no nystagmus, PERRL ENT: nml ENT inspection, pharynx nml Neck: nml inspection, Supple (no meningismus) Cardiovascular: Regular Rate, Rhythm, No Murmur Respiratory: lungs clear, normal breath sounds, no respiratory distress, no accessory muscle use Gastrointestinal: Normal Bowel Sounds, Non Tender Extremities: Non-Tender, No Pedal Edema, No Calf Tenderness Psychiatric: Alert, Oriented x 3 Cranial Nerves: Normal Speech, PERRL Motor/Sensory: No Motor Deficit Skin: Warm/Dry, Normal Color Results/Orders Results/Orders Orders - CAITLYN NAPIER DO Covid19 Antigen Joanna Velarde (02/27/20 10:48) 0.9 % Sodium Chloride (Ns 100ml) (02/27/20 10:54) 0.9 % Sodium Chloride (Ns 1000ml) (02/27/20 10:54) Ondansetron Hcl/Pf (Zofran) (02/27/20 10:54) Ceftriaxone Sodium (Rocephin) (02/27/20 10:54) 0.9 % Sodium Chloride (Ns 1000ml) (02/27/20 10:54) Ceftriaxone Sodium (Rocephin) (02/27/20 10:54) Fentanyl Citrate/Pf (Sublimaze) (02/27/20 10:54) Ondansetron Hcl/Pf (Zofran) (02/27/20 10:54) Fentanyl Citrate/Pf (Sublimaze) (02/27/20 10:55) Lidocaine Hcl (Lidocaine 1% Vial) (02/27/20 11:04) Blood Culture (02/27/20 11:04) Cbc With Auto Diff (02/27/20 11:04) Comprehensive Metabolic Panel (02/27/20 11:04) Uric Acid (02/27/20 11:04) Urinalysis (02/27/20 11:04) Lactate Dehydrogenase (02/27/20 11:04) Lumbar Puncture (02/27/20 11:04) Body Fluid Glucose (02/27/20 11:04) Body Fluid Cell Count/Diff (02/27/20 11:04) Body Fluid Protein (02/27/20 11:04) Ct Head Wo Contrast (02/27/20 11:04) 0.9 % Sodium Chloride (Ns 1000ml) (02/27/20 13:47) Fentanyl Citrate/Pf (Sublimaze) (02/27/20 13:47) Diphenhydramine Hcl (Benadryl) (02/27/20 13:47) Promethazine Hcl (Phenergan) (02/27/20 14:00) Diphenhydramine Hcl (Benadryl) (02/27/20 14:14) Promethazine Hcl (Phenergan) (02/27/20 14:14) Csf Culture And Gram Stain (02/27/20 13:31) Vital Signs Date Time Temp Pulse Resp B/P (MAP) Pulse Ox O2 Delivery O2 Flow Rate FiO2 02/27/20 10:43 99.1 97 18 124/72 (89) 100 Room Air 02/27/20 10:35 99.1 97 18 02/27/20 10:35 99.1 95 18 100 Administered Medications Medications (Trade) Dose Ordered Sig/Usman Route PRN Reason Start Time Stop Time Status Last Admin Dose Admin Ceftriaxone Sodium (Rocephin) 2,000 mg STAT STAT IV 02/27/20 10:54 02/27/20 10:55 UNV 02/27/20 11:20 2,000 MG Diphenhydramine HCl (Benadryl) 25 mg STAT STAT IV 02/27/20 13:47 02/27/20 13:49 DC 02/27/20 14:23 25 MG Fentanyl Citrate (Sublimaze) 50 mcg STAT STAT IV 02/27/20 10:54 02/27/20 10:55 UNV 02/27/20 11:20 50 MCG Fentanyl Citrate (Sublimaze) 50 mcg STAT STAT IV 02/27/20 13:47 02/27/20 13:49 DC 02/27/20 14:23 50 MCG Ondansetron HCl (Zofran) 4 mg STAT STAT IV 02/27/20 10:54 02/27/20 10:55 UNV 02/27/20 11:21 4 MG Promethazine HCl (Phenergan) 25 mg Q6H PRN IV NAUSEA / VOMITING 02/27/20 14:00 03/28/20 13:59 02/27/20 14:24 25 MG Sodium Chloride 1,000 ml @ 1,200 mls/hr Q50M STAT IV 02/27/20 10:54 02/27/20 11:43 UNV 02/27/20 11:20 1,200 MLS/HR Sodium Chloride 1,000 ml @ 1,200 mls/hr Q50M STAT IV 02/27/20 13:47 02/27/20 14:36 DC 02/27/20 14:23 1,200 MLS/HR Laboratory Tests Test 02/27/20 10:40 02/27/20 11:05 02/27/20 13:31 SARS-CoV-2 Antigen (Rapid) NEGATIVE (NEGATIVE) White Blood Count 8.0 10^3/uL (4.5-11.0) Red Blood Count 3.69 10^6/uL (4.00-5.20) L Hemoglobin 9.8 g/dL (12.0-15.0) L Hematocrit 30.1 % (36.0-46.0) L Mean Corpuscular Volume 81.6 fL (78-100) Mean Corpuscular Hemoglobin 26.6 pg (26-34) Mean Corpuscular Hemoglobin Concent 32.6 g/dL (33-36.5) L Red Cell Distribution Width 14.8 % (11.5-14.5) H Platelet Count 332 10^3/uL (150-400) Mean Platelet Volume 9.6 fL (7.8-11.0) Neutrophils (%) (Auto) 77.4 % (41.0-85.0) Lymphocytes (%) (Auto) 18.1 % (24.0-44.0) L Monocytes (%) (Auto) 4.0 % (5.0-12.0) L Neutrophils # (Auto) 6.2 10^3/uL (1.8-7.7) Lymphocytes # (Auto) 1.45 10^3/uL1 (1.0-4.8) Monocytes # (Auto) 0.3 10^3/uL (0.3-0.8) Absolute Immature Granulocyte (auto 0.01 10^3 u/L (0-2) Absolute Eosinophils (auto) 0.0 10^3/uL (0.0-0.2) Immature Granulocytes % 0.10 % (0.00-0.50) Eosinophils % 0.2 % (0.0-5.0) Basophils % 0.2 % (0.0-0.2) Basophils # 0.0 10^3/uL (0.0-0.1) Sodium Level 137 mmol/L (132-145) Potassium Level 3.3 mmol/L (3.6-5.2) L Chloride Level 104.0 mmol/L (96-109) Carbon Dioxide Level 23.2 mmol/L (20.0-32) Anion Gap 13.1 Blood Urea Nitrogen 8 mg/dL (7-18) Creatinine 0.60 mg/dL (0.59-1.40) Estimated GFR () 140.2 (>/=60) Est GFR (CKD-EPI)(Non-Afr [place] Zealander) 115.9 (>/=60) BUN/Creatinine Ratio 13.0 Glucose Level 143 mg/dL (70-110) H Uric Acid 2.9 mg/dL (2.6-6.0) Calcium Level 8.5 mg/dL (8.4-10.5) Total Bilirubin 0.2 mg/dL (0.2-1.0) Aspartate Amino Transferase (AST) 11 U/L (0-35) Alanine Aminotransferase (ALT) 15 U/L (12-78) Alkaline Phosphatase 109 U/L (50-136) Lactate Dehydrogenase 101 U/L (81-234) Total Protein 7.3 g/dL (6.4-8.2) Albumin 2.7 g/dL (3.4-5.0) L Globulin 4.6 Albumin/Globulin Ratio 0.586 Body Fluid Glucose 83 mg/dL Body Fluid Total Protein 30.1 Progress Progress patient loaded with rocephin at onset of visit d/t concern for possible meningi tis; spinal fluid glucose and protein WNL, rare WBC, no organisms seen--no evidence of meningitis; patient has had 150 mcg fentanyl and 2 L NS without more than 5 minutes relief from headache EKG/XRAY/CT/US CT Comments: no acute intracranial process Consult/PCP Time Consult/PCP Called: 10:57 Consult/PCP: Dr. Connors Reason/Comments: discussed concern for meningitis and plan #2 Time Consult/PCP Called: 14:40 Consult/PCP: Dr. Connors Reason/Comments: will see pt in ER ER DEPART Departure Time of Disposition: 14:55 Disposition: 09 ADMITTED INPATIENT Impression: Primary Impression: Intractable headache Additional Impression: Condition: Stable Referrals: TEREZA FORBES STRUCTURER (PCP) PRIMARY CARE PROVIDER Duration or Time Spent with Pa: 90 minutes Problem Qualifiers Primary Impression: Intractable headache Headache type: unspecified Headache chronicity pattern: acute headache Qualified Codes: R51.9 - Headache, unspecified Additional Impression: Weeks of gestation: 23 weeks Qualified Codes: Z3A.23 - 23 weeks gestation of CAITLYN NAPIER DO Feb 27, 2020 10:57
[2020-02-27] MEDS ORDERED: LIDOCAINE 1% VIAL ONE (11:04)
[2020-02-27 11:23] LABS: BASOPHIL % 0.2 % (0.0-0.2); EOSINOPHIL % 0.2 % (0.0-5.0); LYMPHOCYTES # 1.45 10^3/uL1 (1.0-4.8); LYMPHOCYTES % 18.1 % (24.0-44.0); MEAN CORP HGB 26.6 pg (26-34); MONOCYTES # 0.3 10^3/uL (0.3-0.8); NEUTROPHIL # 6.2 10^3/uL (1.8-7.7); NEUTROPHILS % 77.4 % (41.0-85.0); PLATELET COUNT 332 10^3/uL (150-400); RED CELL DISTRIBUTION WIDTH 14.8 % (11.5-14.5)
--- NOTE | 2020-02-27 11:40 | DIREP ---
PROCEDURE:CT HEAD OR BRAIN W/O CONTRAST COMPARISON:None. INDICATIONS:severe headache TECHNIQUE:Axial CT images were obtained from vertex to the skull base without the administration of IV contrast. FINDINGS: VENTRICLES: The ventricles are normal in size and configuration. No hydrocephalus. CEREBRUM: Normal cerebral morphology with appropriate lewis white matter differentiation. No intracranial hemorrhage, mass-effect, or midline shift. No CT evidence of acute infarction. CEREBELLUM: Normal. BRAINSTEM: Normal. BASAL CISTERNS: Normal. SKULL: Normal. No fracture. SINUSES: Normal. Visualized paranasal sinuses and mastoid air cells are clear. OTHER: None. No significant scalp swelling. CONCLUSION: No acute intracranial abnormality. Dictated by: Chiki Ghosh MD on 02/27/2020 at 11:37 AM
[2020-02-27 11:45] LABS: CALCIUM 8.5 mg/dL (8.4-10.5); CARBON DIOXIDE 23.2 mmol/L (20.0-32)
[2020-02-27] MEDS ORDERED: BENADRYL IV STA (13:47)
[2020-02-27] MEDS ORDERED: PHENERGAN IV PRN ×2 (14:00→17:30)
[2020-02-27] MEDS ORDERED: BENADRYL ONE (14:14)
[2020-02-27] MEDS ORDERED: PHENERGAN ONE (14:14)
[2020-02-27] MEDS ORDERED: MAXALT MLT SL STA (15:42)
[2020-02-27] MEDS: NS 1000ML 1,000 ML IV SCH ×2 (15:58→23:33)
--- NOTE | 2020-02-27 16:50 | PCM.HP ---
OB-Chief Complaint and HPI Date/Diagnosis Date: Feb 27, 2020 Time: 16:37 Admit Dx: (1) 23 weeks gestation of ICD Codes: Z3A.23 - 23 weeks gestation of SNOMED: 76945041 (2) Intractable headache ICD Codes: R51.9 - Headache, unspecified SNOMED: 29695062 Status: Acute (3) Morbid (severe) obesity due to excess calories ICD Codes: E66.01 - Morbid (severe) obesity due to excess calories SNOMED: 500213667 (4) Diabetes ICD Codes: E11.9 - Type 2 diabetes mellitus without complications SNOMED: 81961953 Chief Complaint/History(PI) : 3 Para: 2 EDC: Jun 24, 2020 Reason for admission: other (Intractable headaches) Past Family/Social History Patient History: FH: uterine cancer 34 MOTHER No known health problems 35 FATHER 19 CHILD 19 CHILD No Family History of: Alzheimer's disease Asthma Cerebrovascular disorder Chronic obstructive pulmonary disease Congestive heart failure Diabetes insipidus Diabetes mellitus Hypertension Parkinson's disease Blood Type: A+ Rubella: immune RPR/VDRL: Negative GBS Status: Unknown HBsAG: Negative Provider Note: Patient is a 34-year-old at 23 weeks who presents as an admit from the ER secondary to intractable headaches. Michelle states headache started 4 days prior and has persisted. Patient did resolve for 1 day 2 days ago but returned last evening. Patient denies history of migraine headaches. States headache is right frontal and shoots towards the back of her head. Does feel an increase with pressure and headache when she leans forward or with movement. Denies nausea but has decreased appetite. Also noting light sensitivity. At home, patient has taken Motrin, extra strength Tylenol, and Flexeril. She tends to have a tense muscle on her right trapezius and states that Flexeril tends to assist but it did not this time. Patient was given multiple doses of fentanyl in the ER which resolved the headache for approximately 5 minutes then it returned. Patient presented to the emergency room stating that it was the worst headache of her life therefore lumbar puncture and CT scan were completed. Both testing returned negative. Covid testing was also completed that returned negative. Patient has not been diagnosed with COVID-19 this year. Of note, patient takes Zoloft daily. She forgot to take her Zoloft on Saturday and headache began on Saturday. She restarted her medication on Saturday and has been taken daily.Bradycardia states at home she has used heat and a cold pack and neither has assisted with headache resolution. Currently her headache is 7/10. Patient has a history of preeclampsia x2. After her second delivery she was placed on losartan for short time. Currently patient is on prophylactic aspirin. Patient complicated with anemia-iron, cervicalgia-Tramadol, dysthymia- Zoloft Michelle denies pain, bleeding or contractions. Feeling regular movement. She has not eaten today. VS-122/70,99,82, 125/77,100%,75 ABD-Gravid, +FHT EX-Full ROM, NT, No edema, DTR 2 + bilateral Musculoskeletal cervical exam,-Trigger point pain noted bilateral trapezius R>L, trigger radiation pain point therapy, myofascial release and massage completed bilateral. Patient notes trigger point tenderness to frontal portion of head with exam. Improvement noted with release. LABS-02/12/2020 A1C-7.9 Protein/creat ratio 0.29 MEDS-Tresiba 14 units a.m., Zoloft, ASA OB/ HX G1-36 weeks IOL for pre-e; pre-e diagnosed in third trimester G2-37 weeek IOL for pre-e;pre-e diagnosed in third trimester, Losartan after delivery for a short time RUX-Yubbm-Rtmx SX-Gastric sleeve 2018, C/S x 2 WVx-Lco-speqptq disorder A/ 34-year-old at 23.1 Intractable headache-Migraine vs musculoskeletal/tension ,vs sinus, vs pre-e vs other Dysthymia IDDM-Uncontrolled COVID-19 negative History of preeclampsia x 2 w subsequent PTD Anemia Cervicalgia hx-Trigger point R trapezius Previous c/s x 2 P/ Admit to L&D for obs Maxalt x 1 10 mg, reassess in 2 hrs Zoloft 100mg QD ASA daily Heating pad or cold pack prn Zofran prn Regular diet Lantus-Slide scale,We will adjust insulin dose and plan for a new regimen for insulin dosing outpatient as patient is currently uncontrolled with her current Tresiba regimen IVF Iron Protein/Creat ratio Trigger point therapy & myofascial release.Discussed outpatient chiropractic and musculoskeletal massage to alleviate trigger point pain. Reviewed ways to release tension with lacrosse ball at home. OB EXAM Physical Exam Vital Signs: Temperature: 99.1, Source: Oral, Respiratory Rate: 18, BP: 125/72, Pulse Oximetry: 81, Weight: 188 Vital Signs Date Time Temp Pulse Resp B/P (MAP) Pulse Ox O2 Delivery O2 Flow Rate FiO2 02/27/20 17:59 Room Air 02/27/20 16:03 81 18 125/72 (89) 98 02/27/20 10:43 99.1 Allergies Coded Allergies Type Severity Reaction Last Updated Verified atorvastatin Allergy Mild muscle aches 02/27/20 Yes empagliflozin Allergy Mild 02/27/20 Yes metformin Allergy Mild Diarrhea 02/27/20 Yes Sulfa (Sulfonamide Antibiotics) Allergy Unknown Rash 02/27/20 Yes Problem Qualifiers (1) Intractable headache: Headache type: unspecified Headache chronicity pattern: acute headache Qualified Codes: R51.9 - Headache, unspecified RUTH CALDERON DO Feb 27, 2020 16:50
[2020-02-27] MEDS ORDERED: ZOFRAN IV PRN (17:30)
[2020-02-27] MEDS ORDERED: TYLENOL PO PRN (17:30)
[2020-02-27] MEDS ORDERED: HUMALOG ONE (19:30)
[2020-02-27] MEDS ORDERED: HUMALOG SQ ONE ×2 (19:30)
[2020-02-27] MEDS ORDERED: FIORICET PO ONE (19:52)
[2020-02-27] MEDS: FIORICET PO PRN (19:54)
[2020-02-28] MEDS ORDERED: FIORICET PO ONE ×2 (01:26→07:29)
[2020-02-28] MEDS: FIORICET PO PRN ×2 (01:29→07:39)
[2020-02-28] MEDS ORDERED: NS 1000ML 1,000 ML ONE (05:52)
[2020-02-28] MEDS: NS 1000ML 1,000 ML IV SCH (06:05)
[2020-02-28] MEDS ORDERED: LANTUS SQ SCH (06:30)
[2020-02-28] MEDS ORDERED: LANTUS SQ ONE (08:00)
[2020-02-28] MEDS ORDERED: FERROUS SULFATE PO ONE (08:14)
[2020-02-28] MEDS ORDERED: ZOLOFT ONE (08:14)
[2020-02-28] MEDS ORDERED: ASPIRIN ONE (08:14)
[2020-02-28] MEDS ORDERED: ZOFRAN ONE (08:20)
[2020-02-28] MEDS ORDERED: FERROUS SULFATE PO SCH (09:00)
[2020-02-28] MEDS ORDERED: ASPIRIN EC PO SCH (09:00)
[2020-02-28] MEDS ORDERED: ZOLOFT PO SCH (09:00)
[2020-02-28] MEDS ORDERED: TYLENOL ONE (10:52)
[2020-02-28] MEDS ORDERED: [UNRECOGNIZED DRUG - CODE] PO (12:02)
--- NOTE | 2020-02-28 12:14 | PRM.PN ---
Progress Note Subjective Date: Feb 28, 2020 Time: 12:04 Physician Notes: HD #2 Michelle is feeling much better today. Recently had Fioricet and Tylenol. Headache down to a 2/10. States that Fioricet helps but does not last the entire 6 hours. Getting relief for approximately 3 to 4 hours with each tablet. Had nausea this morning that was resolved with Zofran. Tolerating diet. Ambulating and urinating without difficulty. Continues to have frontal headache behind right eye. Feeling regular movement. Discussed uncontrolled blood sugars with current regimen. Patient informs me she has the [employer] - Smartphone RFID [place] to monitor blood sugars. We we will set her up with diabetic counseling and insulin instructions next week at [facility]. I will change patient to Lantus and Humalog. Tomorrow she will call in to give us her blood sugar log and I will review past logs to determine new insulin regimen. Discussed fasting blood sugar should be less than 95 and 1 hour postprandials less than 120. We will plan for steroids in early third trimester and testing starting at 32 weeks. Encouraged movement after each meal and diet modification as well. Patient will call the chiropractic office tomorrow to hopefully get an evaluation for this week and I also suggest an upper body massage. Overall goal will be to stop daily medication for pain and treat root cause of musculoskeletal dysfunction. Patient agreeable to plan of care. We will continue antiemetics as needed and daily iron and Colace as needed. We will recheck hemoglobin around 34 weeks to determine if patient would benefit from blood transfusion prior to repeat section. VS-98.0,73,18,117/68,98% EX-Full ROM, NT TOCO-+FHT ABD-gravid, soft, NT A/ 34-year-old at 23.2 Intractable headache-Migraine vs musculoskeletal/tension ,vs sinus, vs pre-e vs other-TOBIAS improved with Fioricet Dysthymia IDDM-Uncontrolled COVID-19 negative History of preeclampsia x 2 w subsequent PTD x 1 Anemia Cervicalgia hx-Trigger point R trapezius Previous c/s x 2 P/ Maxalt x 1 10 mg, reassess in 2 hrs Zoloft 100mg QD ASA daily Heating pad or cold pack prn Zofran prn Lantus-Slide scale,We will adjust insulin dose and plan for a new regimen for insulin dosing outpatient as patient is currently uncontrolled with her current Tresiba regimen Iron Protein/Creat ratio Trigger point therapy & myofascial release.Discussed outpatient chiropractic and musculoskeletal massage to alleviate trigger point pain. Reviewed ways to release tension with lacrosse ball at home. [facility] diabetic counseling this week and new medication regimen to be started. CBC repeat at 34 weeks testing at 32 weeks Objective Review IO, Exams,& Results Problems Acute/Active Problems: (1) Intractable headache (2) Vital Signs Date Time Temp Pulse Resp B/P (MAP) Pulse Ox O2 Delivery O2 Flow Rate FiO2 02/27/20 17:59 Room Air 02/27/20 16:03 81 18 125/72 (89) 98 02/27/20 10:43 99.1 Intake and Output 02/28/20 07:00 Intake Total 4000 ml Balance 4000 ml IV Total 4000 ml Laboratory Tests Test 02/27/20 10:40 02/27/20 11:05 02/27/20 13:31 02/27/20 18:35 SARS-CoV-2 Antigen (Rapid) NEGATIVE White Blood Count 8.0 10^3/uL Red Blood Count 3.69 10^6/uL Hemoglobin 9.8 g/dL Hematocrit 30.1 % Mean Corpuscular Volume 81.6 fL Mean Corpuscular Hemoglobin 26.6 pg Mean Corpuscular Hemoglobin Concent 32.6 g/dL Red Cell Distribution Width 14.8 % Platelet Count 332 10^3/uL Mean Platelet Volume 9.6 fL Neutrophils (%) (Auto) 77.4 % Lymphocytes (%) (Auto) 18.1 % Monocytes (%) (Auto) 4.0 % Neutrophils # (Auto) 6.2 10^3/uL Lymphocytes # (Auto) 1.45 10^3/uL1 Monocytes # (Auto) 0.3 10^3/uL Absolute Immature Granulocyte (auto 0.01 10^3 u/L Absolute Eosinophils (auto) 0.0 10^3/uL Immature Granulocytes % 0.10 % Eosinophils % 0.2 % Basophils % 0.2 % Basophils # 0.0 10^3/uL Sodium Level 137 mmol/L Potassium Level 3.3 mmol/L Chloride Level 104.0 mmol/L Carbon Dioxide Level 23.2 mmol/L Anion Gap 13.1 Blood Urea Nitrogen 8 mg/dL Creatinine 0.60 mg/dL Estimated GFR () 140.2 Est GFR (CKD-EPI)(Non-Afr Namibian) 115.9 BUN/Creatinine Ratio 13.0 Glucose Level 143 mg/dL Uric Acid 2.9 mg/dL Calcium Level 8.5 mg/dL Total Bilirubin 0.2 mg/dL Aspartate Amino Transf (AST/SGOT) 11 U/L Alanine Aminotransferase (ALT/SGPT) 15 U/L Alkaline Phosphatase 109 U/L Lactate Dehydrogenase 101 U/L Total Protein 7.3 g/dL Albumin 2.7 g/dL Globulin 4.6 Albumin/Globulin Ratio 0.586 Body Fluid Source SPINAL FLUID Body Fluid WBC 0 /mm3 Body Fluid RBC 8 /mm3 Body Fluid Lymphocytes % Body Fluid Glucose 83 mg/dL Body Fluid Total Protein 30.1 Body Fluid Comment CLEAR FLUID Bedside Glucose 151 Test 02/28/20 06:14 Bedside Glucose 121 Current Medications Medications (Trade) Dose Ordered Sig/Usman PRN Reason Start Time Stop Time Status Last Admin Acetaminophen (Tylenol) 650 mg Q4HR PRN MILD PAIN,TOBIAS, FEVER >100.4 02/27/20 17:30 03/28/20 17:29 UNV 02/28/20 10:55 Acetaminophen/ Butalbital/ Caffeine (Fioricet) 1 each Q6HR PRN PAIN 1 - 3 02/27/20 19:30 03/28/20 19:29 UNV 02/28/20 07:39 Aspirin (Aspirin Ec) 81 mg DAILY 02/28/20 09:00 03/29/20 08:59 UNV 02/28/20 08:15 Ferrous Sulfate (Ferrous Sulfate) 325 mg DAILY 02/28/20 09:00 03/29/20 08:59 UNV 02/28/20 08:15 Insulin Glargine (Lantus) 14 unit ACB 02/28/20 06:30 03/29/20 06:29 UNV 02/28/20 08:10 Ondansetron HCl (Zofran) 4 mg Q4H PRN NAUSEA / VOMITING 02/27/20 17:30 03/28/20 17:29 UNV 02/28/20 08:22 Promethazine HCl (Phenergan) 25 mg Q6 PRN NAUSEA 02/27/20 17:30 03/28/20 17:29 UNV Promethazine HCl (Phenergan) 25 mg Q6H PRN NAUSEA / VOMITING 02/27/20 14:00 03/28/20 13:59 02/27/20 14:24 Sertraline HCl (Zoloft) 100 mg DAILY 02/28/20 09:00 03/29/20 08:59 UNV 02/28/20 08:15 Sodium Chloride 1,000 ml @ 150 mls/hr Q8H 02/27/20 16:00 03/28/20 15:59 02/28/20 06:05 Orders - RUTH CALDERON DO Aspirin (Aspirin Ec) (02/28/20 09:00) Ferrous Sulfate (Ferrous Sulfate) (02/28/20 09:00) Sertraline Hcl (Zoloft) (02/28/20 09:00) Kpad To Affected Area (02/27/20 17:09) Ondansetron Hcl/Pf (Zofran) (02/27/20 17:30) Vital Signs Routine (02/27/20 17:09) Call Md For Temp>100.4 (02/27/20 17:09) Call Md For Sbp<90 Or >140 (02/27/20 17:09) Call Md For Dbp >90 (02/27/20 17:09) Notify Md Urine <30cc/Hr (02/27/20 17:09) Activity Advance As Tolerated (02/27/20 17:09) Doppler Ht Qshift <26wks (02/27/20 17:09) Intake & Output (02/27/20 17:09) Promethazine Hcl (Phenergan) (02/27/20 17:30) Acetaminophen (Tylenol) (02/27/20 17:30) Blood Glucose Assessment (02/27/20 17:09) Insulin Glargine,Hum.Rec.Anlog (Lantus) (02/28/20 06:30) Prot/Creat Rat,Ur (02/27/20 17:21) Butalb/Acetaminophen/Caffeine (Fioricet) (02/27/20 19:30) Insulin Lispro (Humalog) (02/27/20 19:30) [address] (02/28/20 Breakfast) RUTH CALDERON DO Feb 28, 2020 12:14
--- NOTE | 2020-02-28 12:21 | PRM.DC ---
DISCHARGE SUMMARY Y ADMIT DATE: 02/27/2020 DISCHARGE DATE: 02/28/2020 ADMITTING DIAGNOSIS: Intractable headache, at 23.1, IDDM DISCHARGE DIAGNOSIS: Same HOSPITAL COURSE: Uncomplicated. Patient given multiple medications to alleviate pain. Patient had best results from Fioricet. Will be sent home with this medication PROCEDURES & DATES: Lumbar puncture 02/27/2020 COMPLICATIONS: None MEDICATIONS: Fioricet DISPOSITION: Stable for discharge to home ASSESSMENT & PLAN: A/ 34-year-old at 23.2 Intractable headache-Migraine vs musculoskeletal/tension ,vs sinus, vs pre-e vs other-TOBIAS improved with Fioricet Dysthymia IDDM-Uncontrolled COVID-19 negative History of preeclampsia x 2 w subsequent PTD x 1 Anemia Cervicalgia hx-Trigger point R trapezius Previous c/s x 2 P/ Maxalt x 1 10 mg, reassess in 2 hrs Zoloft 100mg QD ASA daily Heating pad or cold pack prn Zofran prn Lantus-Slide scale,We will adjust insulin dose and plan for a new regimen for insulin dosing outpatient as patient is currently uncontrolled with her current Tresiba regimen Iron Protein/Creat ratio Trigger point therapy & myofascial release.Discussed outpatient chiropractic and musculoskeletal massage to alleviate trigger point pain. Reviewed ways to release tension with lacrosse ball at home. [facility] diabetic counseling this week and new medication regimen to be started. CBC repeat at 34 weeks testing at 32 weeks RUTH CALDERON DO Feb 28, 2020 12:21
[2020-02-28 12:55] VITALS: BP 117/68
[2020-02-28 12:56] LABS: APPEARANCE,URINE CLEAR (CLEAR); BILIRUBIN,URINE NEGATIVE (NEGATIVE); UA COLOR YELLOW (YELLOW); UROBILINOGEN,URINE NEGATIVE (NEGATIVE)
== END 2020-02-28 12:05 | disposition home or self-care (01) ==
LOC: ER 10:24 → ATP 15:48
PROVIDERS: ADMIT Obstetrics & Gynecology; ATTEND Obstetrics & Gynecology
DX: O26.892 Other specified pregnancy related conditions, second trimester (principal); R51.9 Headache, unspecified; Z20.828 Contact with and (suspected) exposure to other viral communicable diseases; O99.342 Other mental disorders complicating pregnancy, second trimester; F34.1 Dysthymic disorder; O24.419 Gestational diabetes mellitus in pregnancy, unspecified control; O99.012 Anemia complicating pregnancy, second trimester; D64.9 Anemia, unspecified; O99.891 Other specified diseases and conditions complicating pregnancy; M54.2 Cervicalgia; O99.212 Obesity complicating pregnancy, second trimester; E66.01 Morbid (severe) obesity due to excess calories; Z79.899 Other long term (current) drug therapy; Z79.82 Long term (current) use of aspirin; Z79.4 Long term (current) use of insulin; Z87.59 Personal history of other complications of pregnancy, childbirth and the puerperium; Z3A.23 23 weeks gestation of pregnancy
CPT/HCPCS: 36415; 70450; 76825; 80053; 81003; 82570; 82945; 82948 ×2; 83615; 84156; 84157; 84550; 85025; 87040 ×2; 87070; 87205; 87426; 89051; 96361 ×2; 96372 ×2; 96374; 96375; 96376 ×2; 99284; G0378 ×20; J0696; J1200; J1815 ×2; J2001; J2405 ×2; J2550; J3010 ×2; J3490; J7030 ×6; J7050

== ENCOUNTER → 2020-04-15 | Outpatient (CLI) | payer OTHER ==
[~2020-04-15] MED LIST changes: +[UNRECOGNIZED DRUG - CODE] PO
== END | disposition home or self-care (01) ==
LOC: NPLAB 10:56
PROVIDERS: ATTEND Obstetrics & Gynecology
DX: U07.1 COVID-19 (principal)
CPT/HCPCS: 87426

== ENCOUNTER → 2020-04-22 | Outpatient (CLI) | payer OTHER ==
[2020-04-22 12:10] LABS: BASOPHIL % 0.4 % (0.0-0.2); EOSINOPHIL % 0.4 % (0.0-5.0); LYMPHOCYTES # 0.74 10^3/uL1 (1.0-4.8); LYMPHOCYTES % 13.2 % (24.0-44.0); MEAN CORP HGB 24.8 pg (26-34); MONOCYTES # 0.4 10^3/uL (0.3-0.8); MONOCYTES % 7.3 % (5.0-12.0); NEUTROPHIL # 4.4 10^3/uL (1.8-7.7); NEUTROPHILS % 78.3 % (41.0-85.0); PLATELET COUNT 288 10^3/uL (150-400)
[2020-04-22 12:42] LABS: CALCIUM 8.6 mg/dL (8.4-10.5)
--- NOTE | 2020-04-22 13:46 | DIREP ---
PROCEDURE:US BIOPHYSICAL PROFILE W/O NON STRESS COMPARISON:[facility], , US BIOPHYSICAL PROFILE W/O NON STRESS, 04/15/2020, 05:21 PM. INDICATIONS:GEST. DIABETES FINDINGS: Breathing:Normal, 2. Movement:Normal, 2. Tone:Normal, 2. Fluid:Normal, 2. Total: 8 , 8 Number:[place]. Position:Cephalic. Placenta:Posterior. No previa. Amniotic Fluid Volume:Largest vertical pocket: 6.8 cm, (normal is 2-8 cm). Cervix:Measures 3.1 cm. Heart Rate:140 bpm. Clinical GA: 31 weeks, 0 days Clinical PAULA: June 24, 2020 biometric survey was not performed. anatomic survey was not performed. No abnormalities are seen. CONCLUSION:1. Single live intrauterine gestation. Normal biophysical profile score of 8 out of 8. Dictated by: [facility] on 04/22/2020 at 01:26 PM magaly
== END | disposition home or self-care (01) ==
LOC: RAD 10:47
PROVIDERS: ATTEND Obstetrics & Gynecology
DX: O10.013 Pre-existing essential hypertension complicating pregnancy, third trimester (principal); Z3A.31 31 weeks gestation of pregnancy
CPT/HCPCS: 36415; 59025; 76819; 82306; 82310; 82746; 83036; 83550; 83735; 84100; 84156; 84443; 85025; 86318; 86592; 86900

== ENCOUNTER → 2020-04-25 | Outpatient (CLI) | payer OTHER | END | disposition home or self-care (01) | LOC: NPLAB 15:49 | PROVIDERS: ATTEND Obstetrics & Gynecology | DX: E11.9 Type 2 diabetes mellitus without complications (principal) | CPT/HCPCS: 82570; 84156 ==

== ENCOUNTER → 2020-04-26 | Outpatient (CLI) | payer OTHER | END | disposition home or self-care (01) | LOC: LAB 11:28 | PROVIDERS: ATTEND Obstetrics & Gynecology | DX: O10.013 Pre-existing essential hypertension complicating pregnancy, third trimester (principal); Z3A.00 Weeks of gestation of pregnancy not specified | CPT/HCPCS: 59025 ==

== ENCOUNTER → 2020-04-28 | Outpatient (CLI) | payer OTHER | END | disposition home or self-care (01) | LOC: NPLAB 09:33 | PROVIDERS: ATTEND Obstetrics & Gynecology | DX: O24.319 Unspecified pre-existing diabetes mellitus in pregnancy, unspecified trimester (principal); O34.219 Maternal care for unspecified type scar from previous cesarean delivery; O10.919 Unspecified pre-existing hypertension complicating pregnancy, unspecified trimester; Z3A.29 29 weeks gestation of pregnancy | CPT/HCPCS: 82180 ==

== ENCOUNTER → 2020-04-29 | Outpatient (CLI) | payer OTHER ==
--- NOTE | 2020-04-29 15:15 | DIREP ---
PROCEDURE:US BIOPHYSICAL PROFILE W/O NON STRESS COMPARISON:[facility], BIOPHYSICAL PROFILE W/O NON STRESS, 04/15/2020, 05:21 PM. [facility], BIOPHYSICAL PROFILE W/O NON STRESS, 04/22/2020, 11:17 AM. INDICATIONS:010.013 HYPERTENSION COMPLICATING , DM FINDINGS: Breathing:Normal, 2. Movement:Normal, 2. Tone:Normal, 2. Fluid:Normal, 2. Total: 8 , 8 Number:[place]. Position:Cephalic. Placenta:Posterior. No previa. Amniotic Fluid Volume:Largest vertical pocket: 8.6 cm, (normal is 2-8 cm). Cervix:Normal transabdominal assessment. Heart Rate:124 bpm. Clinical GA: 32 weeks, 0 days Clinical PAULA: June 24, 2020 biometric survey was not performed. anatomic survey was not performed. No abnormalities are seen. CONCLUSION: 1. Single live intrauterine . 2. BPP 8/8. 3. Mild polyhydramnios. Dictated by: JUAN Physician on 04/29/2020 at 03:06 PM ac
== END | disposition home or self-care (01) ==
LOC: RAD 13:44
PROVIDERS: ATTEND Obstetrics & Gynecology
DX: O10.013 Pre-existing essential hypertension complicating pregnancy, third trimester (principal); O24.32 Unspecified pre-existing diabetes mellitus in childbirth; E11.9 Type 2 diabetes mellitus without complications; Z3A.00 Weeks of gestation of pregnancy not specified
CPT/HCPCS: 59025; 76819

== ENCOUNTER → 2020-05-05 | Outpatient (CLI) | payer OTHER | END | disposition home or self-care (01) | LOC: RAD 14:35 | PROVIDERS: ATTEND Obstetrics & Gynecology | DX: O10.013 Pre-existing essential hypertension complicating pregnancy, third trimester (principal); Z3A.00 Weeks of gestation of pregnancy not specified | CPT/HCPCS: 59025 ==

== ENCOUNTER → 2020-05-06 | Outpatient (CLI) | payer OTHER ==
--- NOTE | 2020-05-06 15:47 | DIREP ---
PROCEDURE:US BIOPHYSICAL PROFILE W/O NON STRESS COMPARISON:[facility], BIOPHYSICAL PROFILE W/O NON STRESS, 04/29/2020, 01:31 PM. [facility], BIOPHYSICAL PROFILE W/O NON STRESS, 04/22/2020, 11:17 AM. [facility], BIOPHYSICAL PROFILE W/O NON STRESS, 04/15/2020, 05:21 PM. INDICATIONS:PRE-EXISTING ESSENTIAL HTN DURING 3RD TRIMESTER FINDINGS: Breathing:Normal, 2. Movement:Normal, 2. Tone:Normal, 2. Fluid:Normal, 2. Total: 8 , 8 Number:[place]. Position:Cephalic. Placenta:Posterior. No previa. Amniotic Fluid Volume:Largest vertical pocket: 8.6 cm, (normal is 2-8 cm). Cervix:Abnormal transabdominal assessment. Heart Rate:135 bpm. Clinical GA: 33 weeks, 0 days Clinical PAULA: June 24, 2020 biometric survey was not performed. anatomic survey was not performed. No abnormalities are seen. CONCLUSION: 1. Single live intrauterine . 2. BPP 8/8. 3. Mild polyhydramnios. Dictated by: JUAN Physician on 05/06/2020 at 02:21 PM ac
== END | disposition home or self-care (01) ==
LOC: RAD 13:01
PROVIDERS: ATTEND Obstetrics & Gynecology
DX: O10.013 Pre-existing essential hypertension complicating pregnancy, third trimester (principal); Z3A.33 33 weeks gestation of pregnancy
CPT/HCPCS: 76819

== ENCOUNTER → 2020-05-11 | Outpatient (CLI) | payer OTHER ==
--- NOTE | 2020-05-11 19:54 | PCM.ECHO ---
APPROVED REPORT EXAM: Comprehensive 2D, Doppler, and color-flow Echocardiogram. Patient Location: OUT-PATIENT Indications Hypertension/HDD 2D Dimensions LVOT Diameter 2.14 (1.8-2.4cm) LVEF(%) 71.15 (>50%) M-Mode Dimensions RVDd 2.40 (2.1-3.2cm) Left Atrium(MM) 4.25 (2.5-4.0cm) IVSd 1.05 (0.7-1.1cm) Aortic Root 2.60 (2.2-3.7cm) LVDd 4.70 (4.0-5.6cm) Aortic Cusp Exc 1.80 (1.5-2.0cm) PWd 0.75 (0.7-1.1cm) MV EPSS 1.51 (<0.5cm) IVSs 1.75 cm FS (%) 40.85 % LVDs 2.75 (2.0-3.8cm) ESV(Teich) 29.04 ml PWs 1.40 cm LVEF(%) 71.66 (>50%) Volumes Biplane 2D LV Volumes Biplane 2D LA Volumes LVEDv A4C 94.37 mL LA ESV Index LVESv A4C 27.22 mL Aortic Valve AoV Peak Cole. 1.20 m/s AoV VTI 21.00 cm AO Peak GR. 5.80 mmHg AO Mean GR. 3.45 mmHg LVOT VTI 17.17 cm LVOT Peak Cole. 0.88 m/s KALE(VTI)/BSA 2.93 cm2/m2 KALE (VTI) 2.93 cm2 Mitral Valve MV E Velocity 0.90m/s MR Peak Gr. 84.60mmHg MV A Velocity 1.05m/s TDI Lateral E' P. V 0.14m/s Medial E' P. V 0.07m/s Pulmonary Valve PV Peak Velocity 0.85m/s PV Peak Grad. 3.10mmHg RVOT VTI 14.58cm Tricuspid Valve TR P. Velocity 2.40m/s RAP ESTIMATE 10.00mmHg TR Peak Gr. 23.09mmHg RVSP 33.09mmHg LEFT VENTRICLE The left ventricle is normal size. The left ventricular systolic function is normal. The left ventricular ejection fraction is within the normal range. There is normal left ventricular wall thickness. There is normal LV segmental wall motion. There is no ventricular septal defect visualized. No left ventricle thrombus noted on this study. LVEF is 65-70%. RIGHT VENTRICLE The right ventricle is normal size. The right ventricular systolic function is normal. There is normal right ventricular wall thickness. ATRIA The left atrium size is normal. The right atrium size is normal. The interatrial septum is intact with no evidence for an atrial septal defect. AORTIC VALVE The aortic valve is normal in structure. There is no aortic valvular stenosis. No aortic regurgitation is present. There is no aortic valvular vegetation. MITRAL VALVE The mitral valve is normal in structure. There is no mitral valve stenosis. Mild to moderate mitral regurgitation. There is no evidence of mitral valve vegetations. TRICUSPID VALVE The tricuspid valve is normal in structure. There is no tricuspid valve stenosis. Mild tricuspid regurgitation. There is no tricuspid valve vegetations. PULMONIC VALVE The pulmonary valve is normal in structure. There is no pulmonic valvular stenosis. There is no pulmonic valvular regurgitation. There is no pulmonic valve vegetations. GREAT VESSELS The aortic root is normal in size. The pulmonary artery is normal. Aortic arch is not well visualized. IVC is not well visualized. PERICARDIUM Mild circumferential pericardial effusion. No echo indications of pericardial tamponade. There is no pleural effusion. Other Information Study Quality: Fair <Conclusion> The left ventricular systolic function is normal. LVEF is 65-70%. Mild to moderate mitral regurgitation. Mild tricuspid regurgitation. Mild circumferential pericardial effusion. No echo indications of pericardial tamponade. Electronically signed by : JODI ZACARIAS. 05/11/2020 19:54:32
== END | disposition home or self-care (01) ==
LOC: RT 13:35
PROVIDERS: ATTEND Internal Medicine Interventional Cardiology
DX: I08.1 Rheumatic disorders of both mitral and tricuspid valves (principal); I10 Essential (primary) hypertension; Q25.49 Other congenital malformations of aorta
CPT/HCPCS: 93306

== ENCOUNTER → 2020-05-13 | Outpatient (CLI) | payer OTHER ==
--- NOTE | 2020-05-13 16:38 | DIREP ---
PROCEDURE:US BIOPHYSICAL PROFILE W/O NON STRESS COMPARISON:[facility], BIOPHYSICAL PROFILE W/O NON STRESS, 05/06/2020, 01:17 PM. [facility], BIOPHYSICAL PROFILE W/O NON STRESS, 04/29/2020, 01:31 PM. [facility], BIOPHYSICAL PROFILE W/O NON STRESS, 04/22/2020, 11:17 AM. [facility], BIOPHYSICAL PROFILE W/O NON STRESS, 04/15/2020, 05:21 PM. INDICATIONS:PRE EXISTING HTN IN 3RD TRIMESTER FINDINGS: Breathing:Normal, 2. Movement:Normal, 2. Tone:Normal, 2. Fluid:Normal, 2. Total: 8 , 8 Number:[place]. Position:Cephalic. Placenta:Posterior. No previa. Amniotic Fluid Volume:Largest vertical pocket: 4.6 cm, (normal is 2-8 cm). Cervix:Unremarkable transabdominal assessment. Heart Rate:138 bpm. Biparietal Diameter:9.2 cm,(37 weeks, 3 days),99.3 percentile. Head Circumference:33.2 cm,(37 weeks, 6 days),95.5 percentile. Abdominal Circumference:35.2 cm,(39 weeks, 0 days),>99 percentile. Femur Length:6.7 cm,(34 weeks, 2 days),52.4 percentile. Estimated Weight:3271 g,(>99 percentile). Ultrasound GA: 37 weeks, 1 days Ultrasound PAULA: June 02, 2020 Clinical GA: 34 weeks, 0 days Clinical PAULA: June 24, 2020 anatomic survey was not performed. No abnormalities are seen. CONCLUSION: 1. Single live intrauterine . Risk for macrosomia, EFW >99th percentile. 2. BPP 10/16. Dictated by: JUAN Physician on 05/13/2020 at 04:20 PM ac
== END | disposition home or self-care (01) ==
LOC: RAD 12:57
PROVIDERS: ATTEND Obstetrics & Gynecology
DX: O10.013 Pre-existing essential hypertension complicating pregnancy, third trimester (principal); Z3A.37 37 weeks gestation of pregnancy
CPT/HCPCS: 76815; 76819

== ENCOUNTER → 2020-05-20 | Outpatient (CLI) | payer OTHER | END | disposition home or self-care (01) | LOC: RAD 13:31 | PROVIDERS: ATTEND Obstetrics & Gynecology | DX: O10.013 Pre-existing essential hypertension complicating pregnancy, third trimester (principal); Z3A.00 Weeks of gestation of pregnancy not specified | CPT/HCPCS: 76819 ==